=== PATIENT | female | born 1935 | race Caucasian/White ===

== ENCOUNTER 2018-09-10 14:22 | Emergency (ER) | payer OTHER ==
--- OUTSIDE RECORDS SUMMARY | 2018-09-10 14:38 | XMS REPORT ---
:1935 Author Organization eClinicalWorks Care Team Providers Name Role Phone Sherin Herediay Provider Role Unavailable Allergies, Adverse Reactions, Alerts Substance Reaction Event Type statin intolerance Drug Allergy Gemfibrozil nausea and vomiting Drug Allergy Codeine Phosphate Info Not Available Drug Allergy Problems Problem Type Condition Code Onset Dates Condition Status Problem Hypothyroidism E03.9 Active Problem Dizziness R42 Active Problem Incontinence of urine R32 Active Problem Intrinsic eczema L20.84 Active Assessment Benign hypertension I10 Active Problem CKD (chronic kidney disease) stage N18.3 Active 3, GFR 30-59 ml/min Assessment Acute rheumatoid arthritis M06.9 Active Problem Acute rheumatoid arthritis M06.9 Active Problem Gastroesophageal reflux disease K21.9 Active Problem Hearing loss H91.90 Active Problem Diminished pulses in lower extremity R09.89 Active Problem Diarrhea R19.7 Active Problem Chronic obstructive pulmonary J44.9 Active disease, unspecified Problem Vitamin D deficiency, unspecified E55.9 Active Problem Sinus pause I45.5 Active Problem Hypoglycemia E16.2 Active Problem Gout M10.9 Active Problem Benign hypertension I10 Active Problem Pharyngitis J02.9 Active Problem Mixed hyperlipidemia E78.2 Active Problem Depression F32.9 Active Medications Medication Code Code Instructions Start End Status Dosage System Date Date Flonase [facility] 06782970890 50 MCG/DOSE Active 2 sprays Nasally Once a day prn Singulair [facility] 21752274765 10 MG Active TAKE 1 TABLET BY MOUTH EVERY DAY FOR ALLERGIES Dyazide [facility] 59613547843 37.5-25 MG Active 1 EACH ONCE A DAY IN THE AM ORALLY Oxybutynin ND 20757015428 5 MG Orally Active 1 tablet Chloride ER Once a day Zoloft ND 42139996977 50 MG Orally Active 1 tablet Once a day Meloxicam ND 38075613933 15 MG Orally Mar 25May Active 1 tablet Once a day 2017 Fish Oil [facility] [address]-58 Orally Once a Active 1 capsule day Proventil HFA [facility] 24562180354 108 (90 Base) Active 2 puffs as MCG/ACT needed Inhalation every 4-6 hrs prn s.o.b./wheezin g Anoro Ellipta [facility] 24953011423 62.5-25 Active 1 puff MCG/INH Inhalation Once a day Triamcinolone [facility] 51825710715 0.1 % Sept Active 1 application Acetonide Externally 27, to affected Twice a day 2018 area Levothyroxine [facility] 82486923939 112 MCG Orally Active 1 tablet on Sodium Once a day an empty stomach in the morning Vitamin D [facility] 58249592424 2000 UNIT Active 1 tablet Orally Once a day Zoloft [facility] 94411889959 100 MG Orally Active 1 tablet Once a day Amlodipine [facility] 64952032662 5 MG Orally Dec , Active 1 tablet Besylate Once a day 2017 Results No Known Results Summary Purpose eClinicalWorks Submission
--- OUTSIDE RECORDS SUMMARY | 2018-09-10 14:38 | XMS REPORT ---
:1935 Author Organization eClinicalWorks Care Team Providers Name Role Phone Arminda Heredia Provider Role Unavailable Allergies, Adverse Reactions, Alerts Substance Reaction Event Type statin intolerance Drug Allergy Gemfibrozil nausea and vomiting Drug Allergy Codeine Phosphate Info Not Available Drug Allergy Problems Problem Type Condition Code Onset Dates Condition Status Problem Hypoglycemia E16.2 Active Problem Gastroesophageal reflux disease K21.9 Active Problem Hearing loss H91.90 Active Problem Incontinence of urine R32 Active Problem Hypothyroidism E03.9 Active Problem Dizziness R42 Active Problem Gout M10.9 Active Problem Diarrhea R19.7 Active Problem Depression F32.9 Active Problem Pharyngitis J02.9 Active Assessment Hypothyroidism E03.9 Active Assessment Depression F32.9 Active Assessment Decreased pulses in feet R09.89 Active Problem Chronic obstructive pulmonary J44.9 Active disease, unspecified Problem Vitamin D deficiency, unspecified E55.9 Active Assessment Vitamin D deficiency, unspecified E55.9 Active Problem Benign hypertension I10 Active Problem Sinus pause I45.5 Active Problem Mixed hyperlipidemia E78.2 Active Medications Medication Code Code Instructions Start End Status Dosage System Date Date Fish Oil [facility] [address]-32 Orally Once a Active 1 capsule day Zoloft [facility] 73672017003 100 MG Orally Active 1 tablet Once a day Anoro Ellipta [facility] 91689667260 62.5-25 MCG/INH Active 1 puff Inhalation Once a day Singulair [facility] 80612224804 10 MG Orally Active 1 tablet Once a day in the evening Levothyroxine [facility] 75650950843 112 MCG Orally Active 1 tablet Sodium Once a day on an empty stomach in the morning Zoloft [facility] 07396928867 50 MG Orally Active 1 tablet Once a day Proventil HFA [facility] 94717953573 108 (90 Base) Active 2 puffs MCG/ACT as needed Inhalation every 4-6 hrs prn s.o.b./wheezing Oxybutynin [facility] 24744329698 5 MG Orally Active 1 tablet Chloride ER Once a day Celebrex [facility] 19046831450 200 MG Orally Active 1 capsule Once a day with food Dyazide [facility] 80352825454 37.5-25 MG Active 1 EACH ONCE A DAY IN THE AM ORALLY Flonase [facility] 16511911752 50 MCG/DOSE Active 2 sprays Nasally Once a day prn Results No Known Results Summary Purpose eClinicalWorks Submission
--- OUTSIDE RECORDS SUMMARY | 2018-09-10 14:38 | XMS REPORT ---
:1935 Author Organization eClinicalWorks Care Team Providers Name Role Phone Arminda Heredia Provider Role Unavailable Allergies No Known Allergies Problems Problem Type Condition Code Onset Dates Condition Status Problem Pharyngitis J02.9 Active Problem Hypothyroidism E03.9 Active Problem Depression F32.9 Active Problem Diminished pulses in lower extremity R09.89 Active Problem Diarrhea R19.7 Active Problem CKD (chronic kidney disease) stage N18.3 Active 3, GFR 30-59 ml/min Problem Dizziness R42 Active Problem Incontinence of urine R32 Active Problem Gastroesophageal reflux disease K21.9 Active Problem Hearing loss H91.90 Active Problem Sinus pause I45.5 Active Assessment Diminished pulses in lower extremity R09.89 Active Problem Benign hypertension I10 Active Problem Mixed hyperlipidemia E78.2 Active Problem Chronic obstructive pulmonary J44.9 Active disease, unspecified Problem Hypoglycemia E16.2 Active Problem Vitamin D deficiency, unspecified E55.9 Active Problem Gout M10.9 Active Medications No Known Medications Results No Known Results Summary Purpose eClinicalWorks Submission
--- OUTSIDE RECORDS SUMMARY | 2018-09-10 14:38 | XMS REPORT ---
[...] Depression F32.9 Active Problem Pharyngitis J02.9 Active Problem Chronic obstructive pulmonary J44.9 Active disease, unspecified Problem Vitamin D deficiency, unspecified E55.9 Active Assessment Skin lesion of face L98.9 Active Problem Benign hypertension I10 Active Problem Sinus pause I45.5 Active Problem Mixed hyperlipidemia E78.2 Active Medications No Known Medications Results No Known Results Summary Purpose eClinicalWorks Submission
--- OUTSIDE RECORDS SUMMARY | 2018-09-10 14:38 | XMS REPORT ---
:1935 Author Organization eClinicalWorks Care Team Providers Name Role Phone Arminda Heredia Provider Role Unavailable Allergies No Known Allergies Problems Problem Type Condition Code Onset Dates Condition Status Problem Sinus pause I45.5 Active Problem Vitamin D deficiency, unspecified E55.9 Active Problem Chronic obstructive pulmonary J44.9 Active disease, unspecified Problem Diarrhea R19.7 Active Problem Gastroesophageal reflux disease K21.9 Active Problem Diminished pulses in lower extremity R09.89 Active Problem Mixed hyperlipidemia E78.2 Active Problem Benign hypertension I10 Active Problem Hearing loss H91.90 Active Problem Hypoglycemia E16.2 Active Problem Depression F32.9 Active Problem Hypothyroidism E03.9 Active Problem Gout M10.9 Active Problem Incontinence of urine R32 Active Problem Pharyngitis J02.9 Active Problem Dizziness R42 Active Medications No Known Medications Results No Known Results Summary Purpose eClinicalWorks Submission
--- OUTSIDE RECORDS SUMMARY | 2018-09-10 14:38 | XMS REPORT ---
[...] Active Problem Intrinsic eczema L20.84 Active Assessment CKD (chronic kidney disease) stage N18.3 Active 3, GFR 30-59 ml/min Problem CKD (chronic kidney disease) stage N18.3 Active 3, GFR 30-59 ml/min Assessment Vitamin D deficiency, unspecified E55.9 Active Assessment Benign hypertension I10 Active Problem Acute rheumatoid arthritis M06.9 Active [...] hypertension I10 Active Problem Pharyngitis J02.9 Active Assessment Intrinsic eczema L20.84 Active Problem Mixed hyperlipidemia E78.2 Active Problem Depression F32.9 Active Medications Medication Code Code Instructions Start End Status Dosage System Date Date Celebrex [facility] 53705053525 200 MG Orally Active 1 capsule Once a day with food Oxybutynin [facility] 75149193466 5 MG Orally Active 1 tablet Chloride ER Once a day Fish Oil [facility] [address]-76 Orally Once a Active 1 capsule day Singulair [facility] 89347725098 10 MG Active TAKE 1 TABLET BY MOUTH EVERY DAY FOR ALLERGIES Proventil HFA [facility] 31876685986 108 (90 Base) Active 2 puffs as MCG/ACT needed Inhalation every 4-6 hrs prn s.o.b./wheezin g Flonase [facility] 24533339755 50 MCG/DOSE Active 2 sprays Nasally Once a day prn Vitamin D [facility] 93970594497 2000 UNIT Active 1 tablet Orally Once a day Zoloft [facility] 92164764390 50 MG Orally Active 1 tablet Once a day Dyazide [facility] 51399072378 37.5-25 MG Active 1 EACH ONCE A DAY IN THE AM ORALLY Triamcinolone [facility] 98403801729 0.1 % Sept Active 1 application Acetonide Externally 27, to affected Twice a day 2018 area Levothyroxine [facility] 85976389588 112 MCG Orally Active 1 tablet on Sodium Once a day an empty stomach in the morning Anoro Ellipta [facility] 76104475402 62.5-25 Active 1 puff MCG/INH Inhalation Once a day Zoloft [facility] 05126437772 100 MG Orally Active 1 tablet Once a day Results No Known Results Summary Purpose eClinicalWorks Submission
--- OUTSIDE RECORDS SUMMARY | 2018-09-10 14:38 | XMS REPORT ---
[...] Active Problem Sinus pause I45.5 Active Assessment CKD (chronic kidney disease) stage N18.3 Active 3, GFR 30-59 ml/min Problem Benign hypertension I10 Active Problem Mixed hyperlipidemia E78.2 Active Problem Chronic obstructive pulmonary J44.9 Active disease, unspecified Problem Hypoglycemia E16.2 Active Problem Vitamin D deficiency, unspecified E55.9 Active Problem Gout M10.9 Active Medications No Known Medications Results No Known Results Summary Purpose eClinicalWorks Submission
--- OUTSIDE RECORDS SUMMARY | 2018-09-10 14:39 | XMS REPORT ---
:1935 Author Organization eClinicalWorks Care Team Providers Name Role Phone Arminda Heredia Provider Role Unavailable Allergies No Known Allergies Problems Problem Type Condition Code Onset Dates Condition Status Problem Incontinence of urine R32 Active Problem Hearing loss H91.90 Active Problem Dizziness R42 Active Problem Acute rheumatoid arthritis M06.9 Active Problem Intrinsic eczema L20.84 Active Assessment Chronic obstructive pulmonary J44.9 Active disease, unspecified COPD type Problem Chronic obstructive pulmonary J44.9 Active disease, unspecified COPD type Problem Diarrhea R19.7 Active Problem Gastroesophageal reflux disease K21.9 Active Problem CKD (chronic kidney disease) stage N18.3 Active 3, GFR 30-59 ml/min Problem Diminished pulses in lower extremity R09.89 Active Problem Vitamin D deficiency, unspecified E55.9 Active Problem Benign hypertension I10 Active Problem Sinus pause I45.5 Active Problem Chronic obstructive pulmonary J44.9 Active disease, unspecified Problem Gout M10.9 Active Problem Pharyngitis J02.9 Active Problem Mixed hyperlipidemia E78.2 Active Problem Depression F32.9 Active Problem Hypoglycemia E16.2 Active Problem Hypothyroidism E03.9 Active Medications Medication Code System Code Instructions Start End Date Status Dosage Date Anoro Ellipta [facility] 59051650084 62.5-25 MCG/INH Active 1 puff Inhalation Once a day Results No Known Results Summary Purpose eClinicalWorks Submission
--- OUTSIDE RECORDS SUMMARY | 2018-09-10 14:39 | XMS REPORT ---
:1935 Author Organization eClinicalWorks Care Team Providers Name Role Phone Arminda Heredia Provider Role Unavailable Allergies No Known Allergies Problems Problem Type Condition Code Onset Dates Condition Status Problem Incontinence of urine R32 Active Problem Hearing loss H91.90 Active Problem Dizziness R42 Active Problem Acute rheumatoid arthritis M06.9 Active Problem Intrinsic eczema L20.84 Active Problem Chronic obstructive pulmonary J44.9 Active [...] Problem Hypothyroidism E03.9 Active Medications Medication Code Code Instructions Start End Date Status Dosage System Date Amlodipine [facility] 48482519074 5 MG Orally Once Active 1 tablet Besylate a day Results No Known Results Summary Purpose eClinicalWorks Submission
--- OUTSIDE RECORDS SUMMARY | 2018-09-10 14:39 | XMS REPORT ---
[...] N18.3 Active 3, GFR 30-59 ml/min Assessment Costochondritis M94.0 Active Problem Acute rheumatoid arthritis M06.9 Active [...] Start End Status Dosage System Date Date PredniSONE [facility] 64098574929 10 MG Orally Mar 16Feb Active 1 tablet Once a day 2017 Dyazide [facility] 49401687727 37.5-25 MG Active 1 EACH ONCE A DAY IN THE AM ORALLY Vitamin D [facility] 36370484652 2000 UNIT Active 1 tablet Orally Once a day Levothyroxine ND 47396632663 112 MCG Orally Active 1 tablet on Sodium Once a day an empty stomach in the morning Proventil HFA [facility] 59043949993 108 (90 Base) Active 2 puffs as MCG/ACT needed Inhalation every 4-6 hrs prn s.o.b./wheezin g Zoloft [facility] 90482140491 100 MG Orally Active 1 tablet Once a day Fish Oil [facility] [address]-06 Orally Once a Active 1 capsule day Triamcinolone [facility] 00493641306 0.1 % Sept Active 1 application Acetonide Externally 27, to affected Twice a day 2017 area Flonase [facility] 40278098741 50 MCG/DOSE Active 2 sprays Nasally Once a day prn Singulair [facility] 34900928182 10 MG Active TAKE 1 TABLET BY MOUTH EVERY DAY FOR ALLERGIES Amlodipine ND 02485189086 5 MG Orally Dec , Active 1 tablet Besylate Once a day 2017 Anoro Ellipta [facility] 08013857245 62.5-25 Active 1 puff MCG/INH Inhalation Once a day Oxybutynin [facility] 87646855641 5 MG Orally Active 1 tablet Chloride ER Once a day Zoloft [facility] 91358766096 50 MG Orally Active 1 tablet Once a day Results No Known Results Summary Purpose eClinicalWorks Submission
--- OUTSIDE RECORDS SUMMARY | 2018-09-10 14:39 | XMS REPORT ---
:1935 Author Organization eClinicalWorks Care Team Providers Name Role Phone [place] estraday Provider Role Unavailable Allergies, Adverse Reactions, Alerts [...] L20.84 Active Assessment Benign hypertension I10 Active Assessment Acute rheumatoid arthritis M06.9 Active Problem Chronic obstructive pulmonary J44.9 Active [...] Start End Status Dosage System Date Date Levothyroxine [facility] 02129082948 112 MCG Orally Active 1 tablet on Sodium Once a day an empty stomach in the morning Vitamin D ND 06822471246 2000 UNIT Active 1 tablet Orally Once a day Flonase ND 00101497498 50 MCG/DOSE Active 2 sprays Nasally Once a day prn Singulair ND 09047520130 10 MG Active TAKE 1 TABLET BY MOUTH EVERY DAY FOR ALLERGIES Triamcinolone ND 54338305104 0.1 % Sept Active 1 application Acetonide Externally 27, to affected Twice a day 2018 area Zoloft ND 95559152278 100 MG Orally Active 1 tablet Once a day Zoloft ND 51056104458 50 MG Orally Active 1 tablet Once a day Anoro Ellipta [facility] 16213609834 62.5-25 Active 1 puff MCG/INH Inhalation Once a day Meloxicam [facility] 19058210408 15 MG Orally Mar 25May Active 1 tablet Once a day 2017 Amlodipine [facility] 03818791156 5 MG Orally Active 1 tablet Besylate Once a day Proventil HFA [facility] 16850847228 108 (90 Base) Active 2 puffs as MCG/ACT needed Inhalation every 4-6 hrs prn s.o.b./wheezin g Oxybutynin [facility] 73256061047 5 MG Orally Active 1 tablet Chloride ER Once a day Fish Oil [facility] [address]-70 Orally Once a Active 1 capsule day Dyazide [facility] 13504273162 37.5-25 MG Active 1 EACH ONCE A DAY IN THE AM ORALLY Results No Known Results Summary Purpose eClinicalWorks Submission
--- OUTSIDE RECORDS SUMMARY | 2018-09-10 14:39 | XMS REPORT ---
:1935 Author Organization eClinicalWorks Care Team Providers Name Role Phone Arminda Heredia Provider Role Unavailable Allergies, Adverse Reactions, Alerts Substance Reaction Event Type statin intolerance Drug Allergy Gemfibrozil nausea and vomiting Drug Allergy Codeine Phosphate Info Not Available Drug Allergy Problems Problem Type Condition Code Onset Dates Condition Status Problem Hearing loss H91.90 Active Problem Diarrhea R19.7 Active Problem Gastroesophageal reflux disease K21.9 Active Problem Acute pain of left knee M25.562 Active Problem Incontinence of urine R32 Active Problem Chronic obstructive pulmonary J44.9 Active disease, unspecified COPD type Problem Hypothyroidism E03.9 Active Problem Screening for colon cancer Z12.11 Active Problem CKD (chronic kidney disease) stage N18.3 Active 3, GFR 30-59 ml/min Problem Diminished pulses in lower R09.89 Active extremity Problem Acute rheumatoid arthritis M06.9 Active Problem Intrinsic eczema L20.84 Active Problem Chronic obstructive pulmonary J44.9 Active disease, unspecified Problem Vitamin D deficiency, unspecified E55.9 Active Problem Dizziness R42 Active Problem Sinus pause I45.5 Active Problem Hypoglycemia E16.2 Active Problem Gout M10.9 Active Assessment Screening for colon cancer Z12.11 Active Problem Benign hypertension I10 Active Problem Pharyngitis J02.9 Active Assessment Acute pain of left knee M25.562 Active Problem Mixed hyperlipidemia E78.2 Active Problem Depression F32.9 Active Medications Medication Code Code Instructions Start End Status Dosage System Date Date Zoloft [facility] 86901082684 50 MG Orally Active 1 tablet Once a day Zoloft ND 48707074330 100 MG Orally Active 1 tablet Once a day Levothyroxine ND 97794142720 112 MCG Orally Active 1 tablet on Sodium Once a day an empty stomach in the morning Flonase ND 09211434877 50 MCG/DOSE Active 2 sprays Nasally Once a day prn Amlodipine ND 41887762745 5 MG Orally Active 1 tablet Besylate Once a day Oxybutynin ND 24967903882 5 MG Orally Active 1 tablet Chloride ER Once a day Dyazide [facility] 12820383393 37.5-25 MG Active 1 EACH ONCE A DAY IN THE AM ORALLY Singulair [facility] 85371986024 10 MG Active TAKE 1 TABLET BY MOUTH EVERY DAY FOR ALLERGIES Anoro Ellipta [facility] 51682589648 62.5-25 Active 1 puff MCG/INH Inhalation Once a day Vitamin D [facility] 22856185467 2000 UNIT Active 1 tablet Orally Once a day Fish Oil [facility] [address]-29 Orally Once a Active 1 capsule day Triamcinolone [facility] 60732953741 0.1 % Sept Active 1 application Acetonide Externally 27, to affected Twice a day 2018 area Proventil HFA [facility] 54137639941 108 (90 Base) Active 2 puffs as MCG/ACT needed Inhalation every 4-6 hrs prn s.o.b./wheezin g Results No Known Results Summary Purpose eClinicalWorks Submission
[2018-09-10 14:59] LABS: Absolute Monocytes 0.5 K/uL (0.1-1.3); Basophils % 0.7 % (0-1.3); Eosinophils % 2.8 % (0-4.4); Hematocrit 45.1 % (36.0-45.0); Lymphocytes % 25.8 % (15.3-44.8); MPV 8.7 fL (7.6-11.3); Monocytes % 6.9 % (3.3-12.3)
[2018-09-10 15:01] LABS: Protime INR 1.01
[2018-09-10 15:18] LABS: ALT/SGPT 12 U/L (12-78); AST/SGOT 8 U/L (15-37); Albumin 3.6 g/dL (3.4-5.0); Alkaline Phosphatase 70 U/L (45-117); BUN Blood Urea Nitrogen 19 mg/dL (7-18); Bicarbonate 22 mmol/L (21-32); Bilirubin Direct 0.1 mg/dL (0-0.2); Bilirubin Total 0.7 mg/dL (0.2-1.0); Glucose Level 181 mg/dL (74-106); Magnesium 2.1 mg/dL (1.8-2.4); NT PRO-BNP 506 pg/mL (<450); Potassium 3.9 mmol/L (3.5-5.1); Protein, Total 6.7 g/dL (6.4-8.2); Sodium Level 143 mmol/L (136-145); Troponin (Emerg Dept Use Only) < 0.02 ng/mL (0.0-0.045)
[2018-09-10] MEDS ORDERED: NA CHLORIDE 0.9% 1,000 ML ONE (15:18)
--- NOTE | 2018-09-10 15:23 | RAD REPORT ---
EXAM DESCRIPTION: CT - Head Brain Wo Cont - 09/10/2018 3:09 pm CLINICAL HISTORY: DIZZINESS Headache, drowsiness and syncope COMPARISON: <Comparisons> TECHNIQUE: All CT scans are performed using dose optimization technique as appropriate and may inclu de automated exposure control or mA/KV adjustment according to patient size. FINDINGS: No intracranial hemorrhage, hydrocephalus or extra-axial fluid collection.Moderate periven tricular and deep white matter chronic microvascular ischemic changes are present.There is prominent soft tissue/enlarged pituitary seen in the sella turcica. The paranasal sinuses and mastoids are clear. The calvarium is intact. IMPRESSION: No acute intracranial abnormality. Soft tissue density mass is seen in the sella turcica. 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 MR imag ing of the brain with gadolinium would be recommended for followup assessment.
--- NOTE | 2018-09-10 16:00 | RAD REPORT ---
EXAM DESCRIPTION: RAD - Chest Single View - 09/10/2018 3:47 pm CLINICAL HISTORY: FEVER Chest pain. COMPARISON: Chest Pa And Lat (2 Views) dated 11/13/2015; CHEST PA AND LAT 2 VIEW dated 01/07/2013 FINDINGS: Portable technique limits examination quality. Emphysematous changes are present throughout the lungs. Mild linear subsegmental atelectasis is prese nt left lung base. The heart is normal in size. Moderate hiatal hernia. IMPRESSION: COPD.
--- NOTE | 2018-09-10 17:05 | RAD REPORT ---
EXAM DESCRIPTION: - CP - 09/10/2018 4:43 pm CLINICAL HISTORY: DIZZINESS Headache, drowsiness, syncope COMPARISON: No comparisons TECHNIQUE: Real-time sonographic evaluation of both carotid systems was performed. Doppler interroga tion was performed with waveform tracing bilaterally. FINDINGS: Normal high resistance waveforms are noted in both external carotid arteries. The common c arotid arteries and internal carotid arteries show normal low resistance waveforms. Both common carotid systems demonstrate mild hard plaquing. Left carotid bulb demonstrates moderate h myesha plaquing. Peak systolic and end diastolic velocity values and the ICA/CCA ratios are in the non-h emodynamically significant range. Antegrade flow seen in both vertebral arteries. IMPRESSION: Moderate hard plaquing is seen left carotid bulb. No evidence of a hemodynamically significant stenosis.
[2018-09-10 17:08] LABS: Urine Blood NEGATIVE (NEG); Urine Glucose NEGATIVE (NEG); Urine Protein 2+ (NEG); Urine Specific Gravity >1.030 (1.005-1.030)
--- NOTE | 2018-09-10 17:53 | ER ---
Nurse's Notes [facility] Name: Danna Phillips Age: 82 yrs Sex: Female : 1935 Arrival Date: 09/10/2018 Time: 14:23 Bed 15 Private MD: Diagnosis: Abnormal brain scan-soft tissue pituitary mass;Volume depletion;Chronic obstructive pulmonary disease, unspecified;Vomiting;Syncope and collapse-near Presentation: 09/10 14:24 Presenting complaint: EMS states: pt finished shopping at [employer], while at her vehicle sg became dizzy, seeing black spots and felt faint. pt now complains of nausea. Transition of care: patient was not received from another setting of care. Onset of symptoms was September 10, 2018. Risk Assessment: Do you want to hurt yourself or someone else? Patient reports no desire to harm self or others. Initial Sepsis Screen: Does the patient meet any 2 criteria? No. Patient's initial sepsis screen is negative. Does the patient have a suspected source of infection? No. Patient's initial sepsis screen is negative. Care prior to arrival: Glucose check: 181. 14:24 Method Of Arrival: EMS: [facility] sg 14:24 Acuity: ADRIANA 3 sg Historical: - Allergies: 14:27 Codeine; sg - Immunization history:: Adult Immunizations up to date. - Social history:: Smoking status: Patient/guardian denies using tobacco. - Ebola Screening: : Patient negative for fever greater than or equal to 101.5 degrees Fahrenheit, and additional compatible Ebola Virus Disease symptoms Patient denies exposure to infectious person Patient denies travel to an Ebola-affected area in the 21 days before illness onset No symptoms or risks identified at this time. - Family history:: not pertinent. Screenin:15 Abuse screen: Denies threats or abuse. Denies injuries from another. Nutritional sg screening: No deficits noted. Tuberculosis screening: No symptoms or risk factors identified. Never had TB. Fall Risk None identified. Assessment: 14:30 General: Appears in no apparent distress. comfortable, well groomed, well developed, sg well nourished, Behavior is calm, cooperative, appropriate for age. Pain: Denies pain. Neuro: Level of Consciousness is awake, alert, obeys commands, Oriented to person, place, time, situation, Office Clerk Assistant are equal bilaterally Moves all extremities. Full function Gait is steady, Speech is normal, Facial symmetry appears normal, Pupils are PERRLA, Reports fatigue. Cardiovascular: Patient's skin is warm and dry. Chest pain is denied. Respiratory: Airway is patent Respiratory effort is even, unlabored, Respiratory pattern is regular, symmetrical. GI: No signs and/or symptoms were reported involving the gastrointestinal system. : No signs and/or symptoms were reported regarding the genitourinary system. EENT: No signs and/or symptoms were reported regarding the EENT system. Derm: Skin is pink, warm \\T\\ dry. Musculoskeletal: No signs and/or symptoms reported regarding the musculoskeletal system. 16:15 Reassessment: Patient appears in no apparent distress at this time. Patient and/or sg family updated on plan of care and expected duration. Pain level reassessed. Patient is alert, oriented x 3, equal unlabored respirations, skin warm/dry/pink. awaiting lab results, awaiting new orders will continue to monitor Patient denies pain at this time. 16:44 Reassessment: Patient appears in no apparent distress at this time. orthostatics sg ordered, pt still receiving IV NS 500 mL bolus then will do Orthostatics as ordered, pt stated understandign. 17:10 Reassessment: IV fluids completed NS 500 mL bolus, pt states that "I would like to be sg left alone and rest, the orthostatics will just have to wait.". Vital Signs: 14:25 BP 117 / 73; Pulse 96; Resp 17; Temp 98.4; Pulse Ox 100% on R/A; Weight 64.41 kg (R); sg Pain 0/10; 15:30 BP 114 / 72; Pulse 87; Resp 17; Pulse Ox 98% on R/A; Pain 0/10; sg 16:30 BP 112 / 70; Pulse 88; Resp 18; Pulse Ox 97% on R/A; Pain 0/10; sg 17:30 BP 116 / 72; Pulse 82; Resp 17; Pulse Ox 99% on R/A; Pain 0/10; sg ED Course: 14:23 Patient arrived in ED. sg 14:25 Triage completed. sg 14:25 Taran Garrido MD is Attending Physician. marisol 14:25 Arm band placed on. sg 14:34 EKG done, by copy room technician. reviewed by Taran Garrido MD. sm3 14:40 Inserted saline lock: 22 gauge in left antecubital area, using aseptic technique. Blood sg collected. 14:50 Eulogio Dela Cruz, RN is Primary Nurse. sg 15:09 CT Head Brain wo Cont In Process Unspecified. EDMS 15:50 XRAY Chest (1 view) In Process Unspecified. EDMS 16:30 Patient has correct armband on for positive identification. Bed in low position. Call sg light in reach. Pulse ox on. NIBP on. 16:32 Patient moved back from radiology. sg 16:45 US Carotid Artery Bilateral In Process Unspecified. EDMS 16:56 Ayan Vincent MD is Referral Physician. [facility] 18:05 No provider procedures requiring assistance completed. IV discontinued, intact, sg bleeding controlled, No redness/swelling at site. Pressure dressing applied. Administered Medications: 15:35 Drug: NS 0.9% 500 ml Route: IV; Rate: bolus; Site: left antecubital; sg 16:00 Follow up: Response: No adverse reaction; IV Status: Completed infusion; IV Intake: sg 500ml 18:09 Not Given (Patient Refused): NS 0.9% 1000 ml IV at 125 ml/hr continuous sg Intake: 16:00 IV: 500ml; Total: 500ml. sg Outcome: 16:55 Discharge ordered by . [facility] 18:07 Discharged to home ambulatory, with family. sg 18:07 Condition: good 18:07 Discharge instructions given to patient, family, Instructed on discharge instructions, follow up and referral plans. safety practices, Demonstrated understanding of instructions, follow-up care. 18:08 Patient left the ED. sg Signatures: Dispatcher [employer] EDND Eulogio Dela Cruz, Taran Lozoya RN, MD MD cha Montes, Shakira 3
--- NOTE | 2018-09-10 17:54 | EDPHYS ---
Physician Documentation [facility] Name: Danna Phillips Age: 82 yrs Sex: Female : 1935 Arrival Date: 09/10/2018 Time: 14:23 Bed 15 Private MD: ED Physician Taran Garrido HPI: 09/10 14:53 This 82 yrs old Female presents to ER via EMS with complaints of Near Syncope.marisol 14:53 The patient has experienced near-syncope, felt dizzy, felt faint, felt generally weak. marisol Onset: The symptoms/episode began/occurred just prior to arrival. Duration: This was a single episode, that lasted 15 minute(s). Context: the episode(s) was witnessed, by no one. Associated injury: The patient did not suffer any apparent associated injury. Associated signs and symptoms: The patient has no apparent associated signs or symptoms. Current symptoms: Currently, the patient is not experiencing any symptoms, the patient feels back to baseline. The patient has not experienced similar symptoms in the past. Historical: - Allergies: 14:27 Codeine; sg - Immunization history:: Adult Immunizations up to date. - Social history:: Smoking status: Patient/guardian denies using tobacco. - Ebola Screening: : Patient negative for fever greater than or equal to 101.5 degrees Fahrenheit, and additional compatible Ebola Virus Disease symptoms Patient denies exposure to infectious person Patient denies travel to an Ebola-affected area in the 21 days before illness onset No symptoms or risks identified at this time. - Family history:: not pertinent. ROS: 14:53 Constitutional: Negative for fever, chills, and weight loss, Eyes: Negative for injury, marisol pain, redness, and discharge, ENT: Negative for injury, pain, and discharge, Neck: Negative for injury, pain, and swelling, Cardiovascular: Negative for chest pain, palpitations, and edema, Respiratory: Negative for shortness of breath, cough, wheezing, and pleuritic chest pain, Abdomen/GI: Negative for abdominal pain, nausea, vomiting, diarrhea, and constipation, Back: Negative for injury and pain, : Negative for injury, bleeding, discharge, and swelling, MS/Extremity: Negative for injury and deformity, Skin: Negative for injury, rash, and discoloration, Psych: Negative for depression, anxiety, suicide ideation, homicidal ideation, and hallucinations, Allergy/Immunology: Negative for hives, rash, and allergies, Endocrine: Negative for neck swelling, polydipsia, polyuria, polyphagia, and marked weight changes, Hematologic/Lymphatic: Negative for swollen nodes, abnormal bleeding, and unusual bruising. 14:53 Neuro: Positive for near syncope. Exam: 14:53 Constitutional: This is a well developed, well nourished patient who is awake, alert, marisol and in no acute distress. Head/Face: Normocephalic, atraumatic. Eyes: Pupils equal round and reactive to light, extra-ocular motions intact. Lids and lashes normal. Conjunctiva and sclera are non-icteric and not injected. Cornea within normal limits. Periorbital areas with no swelling, redness, or edema. ENT: Nares patent. No nasal discharge, no septal abnormalities noted. Tympanic membranes are normal and external auditory canals are clear. Oropharynx with no redness, swelling, or masses, exudates, or evidence of obstruction, uvula midline. Mucous membranes moist. Neck: Trachea midline, no thyromegaly or masses palpated, and no cervical lymphadenopathy. Supple, full range of motion without nuchal rigidity, or vertebral point tenderness. No Meningismus. Chest/axilla: Normal chest wall appearance and motion. Nontender with no deformity. No lesions are appreciated. Cardiovascular: Regular rate and rhythm with a normal S1 and S2. No gallops, murmurs, or rubs. Normal PMI, no JVD. No pulse deficits. Respiratory: Lungs have equal breath sounds bilaterally, clear to auscultation and percussion. No rales, rhonchi or wheezes noted. No increased work of breathing, no retractions or nasal flaring. Abdomen/GI: Soft, non-tender, with normal bowel sounds. No distension or tympany. No guarding or rebound. No evidence of tenderness throughout. Back: No spinal tenderness. No costovertebral tenderness. Full range of motion. Skin: Warm, dry with normal turgor. Normal color with no rashes, no lesions, and no evidence of cellulitis. MS/ Extremity: Pulses equal, no cyanosis. Neurovascular intact. Full, normal range of motion. Neuro: Awake and alert, GCS 15, oriented to person, place, time, and situation. Cranial nerves II-XII grossly intact. Motor strength 5/5 in all extremities. Sensory grossly intact. Cerebellar exam normal. Normal gait. Psych: Awake, alert, with orientation to person, place and time. Behavior, mood, and affect are within normal limits. Vital Signs: 14:25 BP 117 / 73; Pulse 96; Resp 17; Temp 98.4; Pulse Ox 100% on R/A; Weight 64.41 kg (R); sg Pain 0/10; 15:30 BP 114 / 72; Pulse 87; Resp 17; Pulse Ox 98% on R/A; Pain 0/10; sg 16:30 BP 112 / 70; Pulse 88; Resp 18; Pulse Ox 97% on R/A; Pain 0/10; sg 17:30 BP 116 / 72; Pulse 82; Resp 17; Pulse Ox 99% on R/A; Pain 0/10; sg MDM: 14:25 Patient medically screened. [facility] 14:57 Data reviewed: vital signs, nurses notes, lab test result(s), EKG, radiologic studies, [facility] CT scan, doppler, plain films. 09/10 14:35 Order name: Basic Metabolic Panel bp 09/10 14:35 Order name: CBC with Diff; Complete Time: 16:07 bp 09/10 14:35 Order name: LFT's; Complete Time: 16:07 bp 09/10 14:35 Order name: Magnesium; Complete Time: 16:07 bp 09/10 14:35 Order name: NT PRO-BNP; Complete Time: 16:07 bp 09/10 14:35 Order name: PT-INR; Complete Time: 16:07 bp 09/10 14:35 Order name: Troponin (emerg Dept Use Only); Complete Time: 16:07 bp 09/10 14:35 Order name: XRAY Chest (1 view); Complete Time: 16:07 bp 09/10 14:37 Order name: Basic Metabolic Panel; Complete Time: 16:07 EDMS 09/10 14:53 Order name: CT Head Brain wo Cont; Complete Time: 16:07 marisol 09/10 14:53 Order name: US Carotid Artery Bilateral [facility] 09/10 14:53 Order name: Urine Culture [facility] 09/10 16:10 Order name: TSH; Complete Time: 16:49 [facility] 09/10 16:49 Order name: Urine Dipstick--Ancillary (enter results) wv 09/10 14:35 Order name: EKG; Complete Time: 14:38 bp 09/10 14:35 Order name: Cardiac monitoring; Complete Time: 14:51 bp 09/10 14:35 Order name: EKG - Nurse/Tech; Complete Time: 14:51 bp 09/10 14:35 Order name: IV Saline Lock; Complete Time: 16:44 bp 09/10 14:35 Order name: Labs collected and sent; Complete Time: 14:51 bp 09/10 14:35 Order name: O2 Per Protocol; Complete Time: 14:51 bp 09/10 14:35 Order name: O2 Sat Monitoring; Complete Time: 14:51 bp 09/10 14:53 Order name: Urine Dipstick-Ancillary (obtain specimen); Complete Time: 17:32 marisol Administered Medications: 15:35 Drug: NS 0.9% 500 ml Route: IV; Rate: bolus; Site: left antecubital; sg 16:00 Follow up: Response: No adverse reaction; IV Status: Completed infusion; IV Intake: sg 500ml 18:09 Not Given (Patient Refused): NS 0.9% 1000 ml IV at 125 ml/hr continuous sg Disposition: 09/10/18 16:55 Discharged to Home. Impression: Abnormal brain scan - soft tissue pituitary mass, Volume depletion, Chronic obstructive pulmonary disease, unspecified, Vomiting, Syncope and collapse - near. - Condition is Stable. - Discharge Instructions: Nausea and Vomiting, Adult, Near-Syncope, Nausea and Vomiting, Adult, [id number], Near-Syncope, [id number]. - Medication Reconciliation Form, Thank You Letter, Antibiotic Education, Prescription Opioid Use form. - Follow up: Private Physician; When: 2 - 3 days; Reason: Recheck today's complaints, Continuance of care, Re-evaluation by your physician. Follow up: Ayan Vincent MD; When: 2 - 3 days; Reason: Recheck today's complaints, Continuance of care, Re-evaluation by your physician. - Problem is new. - Symptoms have improved. Signatures: Dispatcher [employer] EDEulogio Bernstein, RN RN Taran Brantley MD MD cha Peltier, Brian, RN RN bp Corrections: (The following items were deleted from the chart) 16:56 16:55 09/10/2018 16:55 Discharged to Home. Impression: Abnormal brain scan - soft marisol tissue pituitary mass; Volume depletion; Chronic obstructive pulmonary disease, unspecified; Vomiting; Syncope and collapse - near. Condition is Stable. Forms are Medication Reconciliation Form, Thank You Letter, Antibiotic Education, Prescription Opioid Use. Follow up: Private Physician; When: 2 - 3 days; Reason: Recheck today's complaints, Continuance of care, Re-evaluation by your physician. Problem is new. Symptoms have improved. [facility] 18:08 16:16 Orthostatics ordered. [facility] sg 18:08 16:56 09/10/2018 16:55 Discharged to Home. Impression: Abnormal brain scan - soft sg tissue pituitary mass; Volume depletion; Chronic obstructive pulmonary disease, unspecified; Vomiting; Syncope and collapse - near. Condition is Stable. Discharge Instructions: Nausea and Vomiting, Adult, Near-Syncope, Nausea and Vomiting, Adult, [id number], Near-Syncope, [id number]. Forms are Medication Reconciliation Form, Thank You Letter, Antibiotic Education, Prescription Opioid Use. Follow up: Private Physician; When: 2 - 3 days; Reason: Recheck today's complaints, Continuance of care, Re-evaluation by your physician. Follow up: Ayan Vincent; When: 2 - 3 days; Reason: Recheck today's complaints, Continuance of care, Re-evaluation by your physician. Problem is new. Symptoms have improved. marisol
--- NOTE | 2018-09-11 08:06 | EKG ---
Test Date: 2018-09-10 Test Time: 14:28:15 Web Retailer: SANDRA MEASUREMENT RESULTS: Intervals: Rate: 92 HI: 172 QRSD: 70 QT: 360 QTc: 445 [place]: P: 12 HI: 172 QRS: -62 T: 34 INTERPRETIVE STATEMENTS: Normal sinus rhythm Left anterior fascicular block Possible Lateral infarct, age undetermined Abnormal ECG Compared to ECG 04/22/2014 08:52:48 Myocardial infarct finding now present Sinus bradycardia no longer present Electronically Signed On 09-11-18 08:04:48 CDT by [facility]
== END 2018-09-10 18:08 | disposition home or self-care (01) ==
LOC: ER 14:22
DX: R55 Syncope and collapse (principal); E23.6 Other disorders of pituitary gland; E86.9 Volume depletion, unspecified; J44.9 Chronic obstructive pulmonary disease, unspecified; R11.10 Vomiting, unspecified; Z88.5 Allergy status to narcotic agent
CPT/HCPCS: 93005; 87088; 85025; 87086; 80048; 36415; 83735; 85610; 80076; 84443; 81003; 84484; 83880; 70450; 71045; 93880; 99284; J7030

== ENCOUNTER 2019-08-24 10:42 | Emergency (ER) | payer OTHER ==
--- OUTSIDE RECORDS SUMMARY | 2019-08-24 11:06 | XMS REPORT ---
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 Problem CKD (chronic kidney disease) stage N18.3 Active 3, GFR 30-59 ml/min Problem Pituitary tumor D49.7 Active Problem Skin excoriation T14.8XXA Active Problem Vitamin D deficiency, unspecified E55.9 Active Problem Chronic obstructive pulmonary J44.9 Active disease, unspecified Problem Itching L29.9 Active Problem Gastroesophageal reflux disease K21.9 Active Problem Chronic obstructive pulmonary J44.9 Active disease, unspecified COPD type Problem Acute rheumatoid arthritis M06.9 A ctive Problem Acute pain of left knee M25.562 Acti ve Problem Screening for colon cancer Z12.11 A ctive Problem Hypoglycemia E16.2 Active Problem Gout M10.9 Active Problem Benign hypertension I10 Active Problem Mixed hyperlipidemia E78.2 Active Problem Hypothyroidism E03.9 Active Problem Incontinence of urine R32 Active Problem Pharyngitis J02.9 Active Problem Depression F32.9 Active Medications No Known Medications Results No Known Results Summary Purpose [employer] Submission
--- OUTSIDE RECORDS SUMMARY | 2019-08-24 11:06 | XMS REPORT ---
:1935 Author Organization [facility] t Address [address] [place] [address] [address]. [address] [place] [address] Care Team Providers Name Role Phone Unavailable Unavailable Unavailable Problems Condition Condition Condition Status Onset Resolution Last Treating Co mments Source Name Details Category Date Date Treatment Clinician Date Hypoglycem Hypoglycem Problem Active [facility] Gastroesop Gastroesop Problem Active [facility] hageal hageal [facility] reflux reflux [facility] disease disease l [facility] Hearing Hearing Problem Active [facility] loss loss [facility] Incontinen Incontinen Problem Active [facility] ce of ce of [facility] urine urine [facility] Acquired Acquired Problem Active [facility] hypothyroi hypothyroi Meghan kes - dism dism [facility] l [facility] Dizziness Dizziness Problem [facility] Gout Gout Problem Active [facility] Diarrhea Diarrhea Problem [facility] Depression Depression Problem Active C [facility] , , [facility] - unspecifie unspecifie Me moria d d l depression depression Ou tpati type type ent Clinics Pharyngiti Pharyngiti Problem Active C [facility] s s [facility] Chronic Chronic Problem Active [facility] obstructiv obstructiv Meghan kes - e e Memoria pulmonary pulmonary l disease, disease, Outpat i unspecifie unspecifie en t d d Clinics Vitamin D Vitamin D Problem Active [facility] deficiency deficiency Meghan kes - , , Memoria unspecifie unspecifie l d d [facility] Benign Benign Problem Active [facility] hypertensi hypertensi Meghan kes - on on Memoria l [facility] Sinus Sinus Problem Active [facility] pause pause [facility] Mixed Mixed Problem Active [facility] hyperlipid hyperlipid Meghan kes - emia emia [facility]oria l [facility]ics Diminished Diminished Problem Active C [facility] pulses in pulses in Luke s - lower lower Memoria extremity extremity l [facility] CKD CKD Problem Active [facility] (chronic ([facility]ronic [facility] disease) disease) l stage 3, stage 3, Outpat i GFR 30-59 GFR 30-59 ent ml/min ml/min Clinics Intrinsic Intrinsic Problem Active [facility] eczema eczema [facility] Acute Acute Problem Active [facility] rheumatoid rheumatoid Meghan kes - arthritis arthritis Deon amira l [facility] Acute pain Acute pain Problem Active C [facility] of left of left [facility] - knee knee Memoria l [facility] Screening Screening Problem Active [facility] for colon for colon [place] - [facility] cancer [facility] Skin Skin Problem Active [facility] excoriatio excoriatio Meghan kes - n n [facility] Itching Itching Problem Active [facility] Pituitary Pituitary Problem Active [facility] tumor tumor [facility] Sinus Sinus Problem Active [facility] pressure pressure [facility] Wears Wears Problem Active [facility] hearing hearing [facility] aid in aid in [facility] left ear left ear l [facility] Allergies, Adverse Reactions, Alerts Allergy Allergy Status Severity Reaction(s) Onset Inactive Treating Comm ents Source Name Type Date Date Clinician statin Adverse Active intolerance [facility] Reaction [facility] Codeine Adverse Active Info Not [facility] Phosphat Reaction Available Adolfo es - e Memoria [facility] ent [facility] Gemfibro Adverse Active nausea and [facility] zil Reaction vomiting [facility] Medications Ordered Filled Start Stop Current Ordering Indication Dosage Frequency Signature Comments Components Source Medication Medication Date Date Medication? Clinician (SIG) Name Name Jaime Sandoval Yes Evelyn [address] [facility] Ellipta Ellipta [place] [facility] Procedures This patient has no known procedures. Encounters Start End Encounter Admission Attending Care Care Encounter Source Date/Time Date/Time Type Type Clinicians Facility Department ID 2019-08-03 2019-08-03 [facility] [id number] [facility] 10:38:00 10:38:00 t [facility] Medicine Outpati ent Clinics 2019-06-07 2019-06-07 [facility] [id number] 22:27:00 22:27:00 t [facility] Medicine Outpati ent Clinics 2019-06-04 2019-06-04 [facility] [id number] [facility] 11:15:00 11:15:00 t [facility] Medicine Outpati ent Clinics 2019-06-03 2019-06-03 [facility] [id number] [address] 17:19:00 17:19:00 t [facility] Medicine Outpati ent Clinics 2019-03-17 2019-03-17 [facility] [id number] [address] 13:40:00 13:40:00 t [facility] Medicine Outpati ent Clinics 2019-02-11 2019-02-11 [facility] [id number] [address] 16:52:00 16:52:00 t [facility] Medicine Outpati ent Clinics 2019-02-08 2019-02-08 [facility] [id number] [address] 09[facility]25:00 09:25:00 t [facility] Medicine Outpati ent Clinics 2018-12-10 2018-12-10 [facility] [id number] [address] 10:10:00 10:10:00 t [facility] Medicine Outpati ent Clinics 2018-11-26 2018-11-26 [facility] [id number] [address] 11:17:00 11:17:00 t [facility] Medicine Outpati ent Clinics 2018-10-29 2018-10-29 [facility] [id number] 13:05:00 13:05:00 t [facility] Medicine Outpati ent Clinics 2018-09-23 2018-09-23 [facility] [id number] 11:34:00 11:34:[address] [facility] [address] [place] - [facility] Medicine Medicine Outpati ent Clinics 2018 2018 [facility] [id number] 10[facility]46:00 10:46:00 t [facility] Medicine Outpati ent Clinics 2018 2018 [facility] [id number] 10:45:00 10:45:00 t [facility] Medicine l Medicine Outpati ent Clinics 2018-09-10 2018-09-10 [facility] [id number] 14:28:00 14:28:00 [place] [address] [place] - [address] [facility] Medicine l Medicine Outpati ent Clinics 2018-06-11 2018-06-11 [facility] [id number] 13:30:00 13:30:00 t [facility] Medicine Outpati ent Clinics 2018-06-04 2018-06-04 [facility] [id number] 16:56:00 16:56:00 t [facility] Medicine Medicine Outpati ent Clinics 2018-05-05 2018-05-05 [facility] [id number] 15:30:00 15:30:00 t [facility] Medicine Medicine Outpati ent Clinics 2018-04-08 2018-04-08 [facility] [id number] 11:12:00 11:12:00 t [facility] [address] [facility] Medicine Medicine Outpati ent Clinics 2018-03-25 2018-03-25 [facility] [id number] 13[facility]30:00 13:30:00 t [facility] [address] [facility] Medicine Medicine Outpati ent Clinics 2018-03-16 2018-03-16 [facility] [id number] 15:30:00 15:30:00 t [facility] [address] [facility] Medicine l Medicine Outpati ent Clinics 2017-12-25 2017-12-25 [facility] [id number] 15:15:00 15:15:00 t [facility] Medicine Outpati ent Clinics 2017-10-20 2017-10-20 [facility] [id number] 09:15:00 09:15:00 [facility] Medicine Outpati ent Clinics 2017-10-16 2017-10-16 [facility] [id number] 08:51:00 08:51:00 [facility] Medicine Outpati ent Clinics 2017-09-08 2017-09-08 [facility] [id number] 15:10:00 15:10:00 [facility] Medicine Outpati ent Clinics 2017-09-04 2017-09-04 [facility] [id number] 10:28:00 10:28:00 [facility] Medicine Outpati ent Clinics 2017-08-29 2017-08-29 [facility] [id number] 11:14:00 11:14:00 [facility] Medicine Outpati ent Clinics 2017-08-21 2017-08-21 [facility] [id number] 10:00:00 10:00:00 [facility] Medicine Outpati ent Clinics Results This patient has no known results.
--- OUTSIDE RECORDS SUMMARY | 2019-08-24 11:07 | XMS REPORT ---
:1935 Author Organization [employer] Care Team Providers Name Role Phone Evelyn Heredia Provider Role Unavailable Allergies No Known Allergies Problems Problem Type Condition Code Onset Dates Condition Statu s Problem Sinus pause I45.5 Active Problem Hearing loss H91.90 Active Problem Hypothyroidism E03.9 Active Problem Incontinence of urine R32 Active Problem Dizziness R42 Active Problem Gout M10.9 Active Problem Acute rheumatoid arthritis M06.9 A ctive Problem Chronic obstructive pulmonary J44.9 Active disease, unspecified COPD type Problem Pharyngitis J02.9 Active Problem Acute pain of left knee M25.562 Acti ve Problem Itching L29.9 Active Problem Screening for colon cancer Z12.11 A ctive Problem Acquired hypothyroidism E03.9 Acti ve Problem Sinus pressure J34.89 Active Problem Vitamin D deficiency, unspecified E55.9 Active Problem Chronic obstructive pulmonary J44.9 Active disease, unspecified Problem Essential hypertension I10 Activ e Problem Depression F32.9 Active Problem Skin excoriation T14.8XXA Active Problem Pituitary tumor D49.7 Active Problem Depression, unspecified depression F32.9 Active type Problem Wears hearing aid in left ear Z97.4 Active Problem Hypoglycemia E16.2 Active Problem Gastroesophageal reflux disease K21.9 Active Problem Benign hypertension I10 Active Problem Mixed hyperlipidemia E78.2 Active Problem CKD (chronic kidney disease) stage N18.3 Active 3, GFR 30-59 ml/min Problem Intrinsic eczema L20.84 Active Problem Diarrhea R19.7 Active Problem Diminished pulses in lower R09.89 A ctive extremity Medications No Known Medications Results No Known Results Summary Purpose [employer] Submission
--- OUTSIDE RECORDS SUMMARY | 2019-08-24 11:07 | XMS REPORT ---
[...] in lower R09.89 A ctive extremity Medications Medication Code System Code Instructions Start End Date Status Dos age Date Anoro Ellipta [facility] 79150162463 62.5-25 MCG/INH Active 1 puff Inhalation Once a day Results No Known Results Summary Purpose [employer] Submission
--- OUTSIDE RECORDS SUMMARY | 2019-08-24 11:07 | XMS REPORT ---
:1935 Author Organization [employer] Care Team Providers Name Role Phone Karly John Provider Role Unavailable Allergies, Adverse Reactions, Alerts Substance Reaction Event Type statin intolerance Drug Allergy Gemfibrozil nausea and vomiting Drug Allergy Codeine Phosphate Info Not Available Drug Allergy Problems Problem Type Condition Code Onset Dates Condition Statu s Assessment Pituitary tumor D49.7 Active Assessment Acquired hypothyroidism E03.9 Acti ve Assessment Essential hypertension I10 Activ e Problem Sinus pause I45.5 Active Problem Hearing [...] hearing aid in left ear Z97.4 Active Assessment Chronic obstructive pulmonary J44.9 Active disease, unspecified Problem Hypoglycemia E16.2 Active Assessment Sinus pressure J34.89 Active Problem Gastroesophageal reflux disease K21.9 Active Assessment Wears hearing aid in left ear Z97.4 Active Problem Benign hypertension I10 Active Assessment Hearing loss H91.90 Active Problem Mixed hyperlipidemia E78.2 Active Problem CKD (chronic kidney disease) stage N18.3 Active 3, GFR 30-59 ml/min Assessment Depression, unspecified depression F32.9 Active type Problem Intrinsic eczema L20.84 Active Problem Diarrhea R19.7 Active Problem Diminished pulses in lower R09.89 A ctive extremity Medications Medication Code Code Instructions Start End Status Dosage System Date Date Flonase [facility] 42770224739 50 MCG/DOSE Active 2 sprays Nasally Once a day prn Singulair [facility] 01109161009 10 MG Active TAKE 1 TAB LET BY MOUTH EVERY DAY FOR ALLERGIES Vitamin D [facility] 28671217241 2000 UNIT Active 1 tablet Orally Once a day Proventil HFA [facility] 05437455943 108 (90 Base) Active 2 puffs as MCG/ACT needed Inhalation every 4-6 hrs prn s.o.b./wheezin g Zoloft [facility] 28627756683 50 MG Orally Active 1 table t Once a day Fish Oil [facility] [address]-06 Orally Once a Active 1 capsule day Triamcinolone [facility] 00224405044 0.1 % Sept Active 1 appl ication Acetonide Externally 27, to affected Twice a day 2018 area Zoloft [facility] 66559455097 100 MG Orally Active 1 tabl et Once a day Amlodipine [facility] 07365453154 5 MG Orally Active 1 tab let Besylate Once a day Anoro Ellipta [facility] 99890695062 62.5-25 Active 1 puff MCG/INH Inhalation Once a day Dyazide [facility] 48519663281 37.5-25 MG Active 1 EACH ON CE A DAY IN THE AM ORALLY Iron [facility] 44066243140 325 (65 Fe) MG Active 1 tab let Orally Once a day Levothyroxine [facility] 81987126159 75 MCG Orally Active 1 tablet on Sodium Once a day an empty stomach in the morning Oxybutynin [facility] 33671345663 5 MG Orally Active 1 tab let Chloride ER Once a day Results No Known Results Summary Purpose eClinicalWorks Submission
[2019-08-24 11:40] LABS: Potassium 3.9 mmol/L (3.5-5.1); Uric Acid 5.5 mg/dL (2.6-6.0)
[2019-08-24 11:46] LABS: Basophils % 0.8 % (0-1.3); Hematocrit 43.7 % (36.0-45.0); Lymphocytes % 26.6 % (15.3-44.8); MPV 8.9 fL (7.6-11.3); RBC Red Blood Cell Count 5.63 M/uL (3.86-4.86)
--- NOTE | 2019-08-24 13:02 | RAD REPORT ---
EXAM DESCRIPTION: RAD - Foot Right 3 View - 08/24/2019 11:25 am CLINICAL HISTORY: foot pain, 1st MTP, history of trip and fall 2 weeks earlier COMPARISON: No comparisonsNone. FINDINGS: Subacute fractures seen in the first proximal phalanx. There is a transverse lucent line a t the shaft head junction. There is early remodeling changes present. No abnormal angulation deformit y. Degenerative change present at the first IP joint. The second- fifth IP joint spaces are narrowed. Na rrowing is present at the first MTP joint. No pathologic bone process. No air or foreign body in the soft tissues. IMPRESSION: Subacute fracture first proximal phalanx right foot without distraction or angulation de formity.
[2019-08-24 13:53] VITALS: TEMP 97.8
[2019-08-24 13:56] VITALS: BP 220/80; O2SAT 96
--- NOTE | 2019-08-30 13:13 | ER ---
Nurse's Notes [facility] Name: Danna Phillips Age: 83 yrs Sex: Female : 1935 Arrival Date: 08/24/2019 Time: 10:44 Bed 20 Private MD: Diagnosis: Nondisplaced fracture of proximal phalanx of right great toe Presentation: 08/23 10:46 Chief complaint: Patient states: swelling to right foot. Pt states "I tripped 2 weeks aa5 ago and I also have gout so I am not sure what it is". 10:46 Coronavirus screen: Proceed with normal triage. Patient reports a cough. Patient aa5 reports shortness of breath or difficulty breathing. Patient denies measured and/or subjective temperature greater than 100.4F prior to today's visit. Patient denies travel on a cruise ship or to a country the [facility] currently lists as an affected area. Patient denies contact with known and/or suspected case of COVID-19. Pt reports baseline SOB and cough from COPD. Ebola Screen: Patient negative for fever greater than or equal to 101.5 degrees Fahrenheit, and additional compatible Ebola Virus Disease symptoms. Initial Sepsis Screen: Does the patient meet any 2 criteria? No. Patient's initial sepsis screen is negative. Does the patient have a suspected source of infection? No. Patient's initial sepsis screen is negative. Risk Assessment: Do you want to hurt yourself or someone else? Patient reports no desire to harm self or others. Onset of symptoms was July 2019. 10:46 Method Of Arrival: Wheelchair aa5 10:46 Acuity: ADRIANA 2 aa5 Triage Assessment: 10:50 General: Appears in no apparent distress. uncomfortable, Behavior is cooperative, bp appropriate for age, anxious. Pain: Complains of pain in right foot. EENT: No deficits noted. Neuro: No deficits noted. Cardiovascular: No deficits noted. Respiratory: No deficits noted. GI: No signs and/or symptoms were reported involving the gastrointestinal system. : No signs and/or symptoms were reported regarding the genitourinary system. Derm: No deficits noted. Musculoskeletal: Swelling present in right foot. Historical: - Allergies: 10:46 Codeine; aa5 - PMHx: 10:46 Gout; COPD; Hypertension; Thyroid problem; aa5 10:46 Neuropathy; 60% kidney function; aa5 - PSHx: 10:46 Cholecystectomy; Appendectomy; D \\T\\ C; cataracts; aa5 - Immunization history:: Adult Immunizations up to date. - Social history:: Smoking status: Patient denies any tobacco usage or history of. - Family history:: not pertinent. - Hospitalizations: : No recent hospitalization is reported. Screenin:50 Abuse screen: Denies threats or abuse. Denies injuries from another. bp 10:50 Nutritional screening: No deficits noted. Tuberculosis screening: No symptoms or risk bp factors identified. Fall Risk None identified. Assessment: 10:50 General: SEE TRIAGE NOTE. bp Vital Signs: 10:46 BP 233 / 101; Pulse 64; Resp 20 S; Temp 97.8(O); Pulse Ox 100% on R/A; Weight 74.39 kg aa5 (R); Height 5 ft. 10 in. (177.80 cm) (R); Pain 10/10; 12:30 BP 220 / 90; Pulse 59; Resp 16; Pulse Ox 98% ; bp 13:28 BP 220 / 80; Pulse 49; Resp 16; Pulse Ox 96% ; bp 10:46 Body Mass Index 23.53 (74.39 kg, 177.80 cm) aa5 ED Course: 10:44 Patient arrived in ED. ag5 10:46 Arm band placed on Patient placed in an exam room, on a stretcher. aa5 10:50 Patient has correct armband on for positive identification. Bed in low position. Call bp light in reach. Side rails up X2. 10:54 Carloz Chatterjee MD is Attending Physician. rn 10:58 Mikel Noonan, EDILBERTO is Primary Nurse. bp 11:00 Triage completed. aa5 11:15 Inserted saline lock: 22 gauge in right forearm, using aseptic technique. Blood bp collected. 11:25 XRAY Foot RIGHT 3 View In Process Unspecified. EDMS 13:30 Ortho shoe applied to right foot. bp 13:43 No provider procedures requiring assistance completed. IV discontinued, intact, bp bleeding controlled, No redness/swelling at site. Pressure dressing applied. Administered Medications: No medications were administered Outcome: 12:26 Discharge ordered by MD. rn 13:43 Discharged to home ambulatory. bp 13:43 Condition: stable 13:43 Discharge instructions given to patient, Instructed on discharge instructions, follow up and referral plans. Demonstrated understanding of instructions, follow-up care, splint care. 13:44 Patient left the ED. bp Signatures: Dispatcher [employer] EDMS Carloz Chatterjee MD MD rn Calderon, Audri RN RN aa5 Mikel Noonan RN RN bp Aleida Alexandru ag5 Corrections: (The following items were deleted from the chart) 11:01 11:01 Allergies: Codeine; bp bp 11:02 10:58 Chief complaint: Patient states: R FOOT PAIN/EDEMA/ERYTHEMA x2 DAYS bp bp 11:02 10:58 Coronavirus screen: Proceed with normal triage. bp bp 11:02 10:58 Ebola Screen: No symptoms or risks identified at this time. bp bp 11:02 10:58 Initial Sepsis Screen: Does the patient meet any 2 criteria? No. Patient's bp initial sepsis screen is negative. Does the patient have a suspected source of infection? No. Patient's initial sepsis screen is negative. bp 11:02 10:58 Risk Assessment: Do you want to hurt yourself or someone else? Patient reports no bp desire to harm self or others. bp 11:02 10:58 Onset of symptoms is unknown. bp bp 11:02 10:58 Method Of Arrival: Ambulatory bp bp 11:02 10:58 BP 233 / 101; Pulse 63bpm; Resp 15bpm; Pulse Ox 100%; Temp 97.8F; bp bp 11:02 10:58 Acuity: ADRIANA 3 bp bp
--- NOTE | 2019-08-30 13:13 | EDPHYS ---
Physician Documentation [facility] Name: Danna Phillips Age: 83 yrs Sex: Female : 1935 Arrival Date: 08/24/2019 Time: 10:44 Bed 20 Private MD: ED Physician Carloz Chatterjee HPI: 08/23 12:21 This 83 yrs old Female presents to ER via Ambulatory with complaints of Feet rn Swelling, Foot Pain. 12:21 The patient presents with pain, swelling. The complaints affect the right foot. Onset: rn The symptoms/episode began/occurred this morning. Modifying factors: The symptoms are alleviated by nothing, the symptoms are aggravated by weight bearing, movement. Severity of symptoms: At their worst the symptoms were mild, in the emergency department the symptoms are unchanged. The patient has not experienced similar symptoms in the past. Reports fell 2 weeks ago, not sure if injured anything, but woke up this morning with pain and swelling around right great toe, does not recall new injury. No hx of gout. No fever. . Historical: - Allergies: 10:46 Codeine; aa5 - PMHx: 10:46 Gout; COPD; Hypertension; Thyroid problem; aa5 10:46 Neuropathy; 60% kidney function; aa5 - PSHx: 10:46 Cholecystectomy; Appendectomy; D \T\ C; cataracts; aa5 - Immunization history:: Adult Immunizations up to date. - Social history:: Smoking status: Patient denies any tobacco usage or history of. - Family history:: not pertinent. - Hospitalizations: : No recent hospitalization is reported. ROS: 12:21 MS/extremity: Positive for pain, swelling, tenderness. rn 12:21 Constitutional: Negative for fever, chills, and weight loss, MS/Extremity: Negative for deformity Neuro: Negative for weakness, numbness, tingling Exam: 12:21 Constitutional: This is a well developed, well nourished patient who is awake, alert, rn and in no acute distress. MS/ Extremity: Pulses equal, no cyanosis. + mild tenderness right 1st MTP joint and toe with mild swelling and redness. No open wounds. + swelling of distal foot. No streaking or warmth. Vital Signs: 10:46 BP 233 / 101; Pulse 64; Resp 20 S; Temp 97.8(O); Pulse Ox 100% on R/A; Weight 74.39 kg aa5 (R); Height 5 ft. 10 in. (177.80 cm) (R); Pain 10/10; 12:30 BP 220 / 90; Pulse 59; Resp 16; Pulse Ox 98% ; bp 13:28 BP 220 / 80; Pulse 49; Resp 16; Pulse Ox 96% ; bp 10:46 Body Mass Index 23.53 (74.39 kg, 177.80 cm) aa5 MDM: 10:54 Patient medically screened. rn 12:21 Differential diagnosis: fracture, sprain, arthritis, gout. Data reviewed: vital signs, rn nurses notes, radiologic studies, plain films, and as a result, I will discharge patient. Test interpretation: by ED physician or midlevel provider: plain radiologic studies, Xray right foot with closed, proximal transverse 1st phalanx fracture. . Counseling: I had a detailed discussion with the patient and/or guardian regarding: the historical points, exam findings, and any diagnostic results supporting the discharge/admit diagnosis, lab results, radiology results, the need for outpatient follow up, to return to the emergency department if symptoms worsen or persist or if there are any questions or concerns that arise at home. Special discussion: I discussed with the patient/guardian in detail that at this point there is no indication for admission to the hospital. It is understood, however, that if the symptoms persist or worsen the patient needs to return immediately for re-evaluation. ED course: Neg procal, normal WBC, normal uric acid. Unsure how she fractured toe but could explain isolated pain to great toe and recent injury. Also could be subacute fracture with gout. States can only take acetaminophen, will place in fracture shoe and recommended repeat xrays. . 08/23 11:03 Order name: CBC with Diff; Complete Time: 11:59 08/23 11:03 Order name: Basic Metabolic Panel; Complete Time: 11: rn 08/23 11:03 Order name: XRAY Foot RIGHT 3 View; Complete Time: 13:05 rn 08/23 11:03 Order name: IV Start; Complete Time: 11:30 08/23 11:03 Order name: Procalcitonin; Complete Time: 12:14 rn 08/23 11:03 Order name: Uric Acid; Complete Time: 11:08/23 12:21 Order name: Splint: ortho fracture shoe; Complete Time: 13:43 rn Administered Medications: No medications were administered Disposition: 08/24/19 12:26 Discharged to Home. Impression: Nondisplaced fracture of proximal phalanx of right great toe. - Condition is Stable. - Discharge Instructions: Toe Fracture. - Medication Reconciliation Form, Thank You Letter, Antibiotic Education, Prescription Opioid Use form. - Follow up: Private Physician; When: As needed; Reason: Recheck today's complaints, Re-evaluation by your physician. - Problem is new. - Symptoms have improved. Signatures: Dispatcher [employer] EDMS Carloz Chatterjee MD MD rn Calderon, Audri RN RN aa5 Mikel Noonan RN RN bp Corrections: (The following items were deleted from the chart) 11:01 11:01 Allergies: Codeine; bp bp 13:44 12:26 08/24/2019 12:26 Discharged to Home. Impression: Nondisplaced fracture of bp proximal phalanx of right great toe. Condition is Stable. Forms are Medication Reconciliation Form, Thank You Letter, Antibiotic Education, Prescription Opioid Use. Follow up: Private Physician; When: As needed; Reason: Recheck today's complaints, Re-evaluation by your physician. Problem is new. Symptoms have improved. rn
== END 2019-08-24 13:44 | disposition home or self-care (01) ==
LOC: ER 10:42
DX: S92.414A Nondisplaced fracture of proximal phalanx of right great toe, initial encounter for closed fracture (principal); W19.XXXA Unspecified fall, initial encounter; Y93.9 Activity, unspecified; Y92.9 Unspecified place or not applicable; I10 Essential (primary) hypertension; Z88.5 Allergy status to narcotic agent
CPT/HCPCS: 36415; 80048; 84145; 84550; 85025; 99284

== ENCOUNTER 2021-03-16 08:01 | Day surgery (SDC) | payer OTHER ==
[2021-03-16] MEDS ORDERED: Ringers Lactate 1,000 ML IV ONE (08:27)
[2021-03-16] MEDS ORDERED: propofoL 200 MG/20 ML VIAL IV ONE (09:25)
[2021-03-16] MEDS ORDERED: LIDOCAINE 1% MPF 5 ML VIAL ONE (09:25)
--- NOTE | 2021-03-16 10:12 | ENDO RPT ---
[address], [address] COLONOSCOPY PROCEDURE REPORT EXAM DATE: 03/16/2021 PATIENT NAME: Danna Phillips MR #: [id number] BIRTHDATE: 1935 ATTENDING: Noah Beck DR STATUS: outpatient INSURANCE CLAIM AUDITOR: Isa Ireland RN and Naty Correa INDICATIONS: The patient is a 85 yr old Female here for a colonoscopy due to positive cologuard stool DNA test PROCEDURE PERFORMED: Colonoscopy with biopsy - cold polypectomy MEDICATIONS: Per Anesthesia. ESTIMATED BLOOD LOSS: None CONSENT: The patient understands the risks and benefits of the procedure and understands that these risks include, but are not limited to: sedation, allergic reaction, infection, perforation and/or bleeding. Alternative means of evaluation and treatment include, among others: physical exam, x-rays, and/or surgical intervention. The patient elects to proceed with this endoscopic procedure. DESCRIPTION OF PROCEDURE: During intra-op preparation period all mechanical medical equipment was checked for proper function. Hand hygiene and appropriate measures for infection prevention was taken. Procedure, possible complications, alternatives including, but not limited to possibility of bleeding, perforation, tear, infection, sepsis, need for surgery, need for blood transfusion, were explained to the patient. After the risks, benefits and alternatives of the procedure were thoroughly explained, Informed consent was verified, confirmed and timeout was successfully executed by the treatment team. The patient was placed in the left lateral position. A digital rectal exam was performed and revealed internal hemorrhoids, A digital rectal exam was performed and revealed external hemorrhoids, and A digital rectal exam was performed and revealed several skin tags. After appropriate level of anesthesia, the scope was passed. The EC-[id number] ([id number]) endoscope was introduced through the anus and advanced to the cecum, which was identified by both the appendix and ileocecal valve. The quality of the prep was fair. The instrument was then slowly withdrawn as the colon was fully examined. Scope withdrawal time was 12 minutes. COLON FINDINGS: Moderate diverticulosis was noted in the sigmoid colon. No bleeding was noted from the diverticulosis. Two smooth and polypoid shaped semi-pedunculated polyps ranging between 3-7mm in size with friable surfaces were found at the cecum and in the sigmoid colon. A polypectomy was performed using snare cautery. The resection was complete, the polyp tissue was completely retrieved and sent to histology. Small internal and external hemorrhoids were found. Retroflexed views revealed no abnormalities. The scope was then completely withdrawn from the patient and the procedure terminated. ADVERSE EVENTS: There were no complications. IMPRESSIONS: 1. Moderate diverticulosis was noted in the sigmoid colon 2. Two semi-pedunculated polyps ranging between 3-7mm in size were found at the cecum and in the sigmoid colon; polypectomy was performed using snare cautery 3. Small internal and external hemorrhoids RECOMMENDATIONS: 1. avoid NSAIDS for 2 weeks 2. await biopsy results 3. follow-up: office 2 week(s) 4. Monitor for any evidence of rectal bleeding. 5. yearly hemoquant 6. hemorrhoidal hygiene 7. increase dietary water RECALL: for Colonoscopy, pending biopsy results. Noah Beck DR eSigned: Noah Beck DR 03/16/2021 10:12 AM cc: CPT CODES: ICD9 CODES: PATIENT NAME: Danna Phillips MR#: [id number]
[2021-03-16] MEDS ORDERED: GLYCOPYRROLATE 0.2 MG/ML SYR ONE (10:35)
[2021-03-16 10:56] VITALS: BP 145/77; TEMP 97.4; O2SAT 98
== END 2021-03-16 10:36 | disposition home or self-care (01) ==
LOC: OR 08:01
PROVIDERS: ATTEND Surgery
PROC: 0DBN8ZX Excision of Sigmoid Colon, Via Natural or Artificial Opening Endoscopic, Diagnostic (ICD-10-PCS; 2021-03-16)
PROC: 0DBH8ZX Excision of Cecum, Via Natural or Artificial Opening Endoscopic, Diagnostic (ICD-10-PCS; principal; 2021-03-16 09:30)
DX: R19.5 Other fecal abnormalities (principal); D12.0 Benign neoplasm of cecum; D12.5 Benign neoplasm of sigmoid colon; K64.8 Other hemorrhoids; K64.4 Residual hemorrhoidal skin tags; K57.30 Diverticulosis of large intestine without perforation or abscess without bleeding; Z20.822 Contact with and (suspected) exposure to COVID-19
CPT/HCPCS: 88305; 45385; U0003; J2704; J7120

== ENCOUNTER 2023-12-10 10:03 | Emergency (ER) | payer MEDICARE ==
--- OUTSIDE RECORDS SUMMARY | 2023-12-10 10:07 | XMS REPORT | Continuity of Care Document ---
Author Name Unknown Address [address] [facility] [address] [place] [id number] [facility] Address [address] [facility] [address] [place] [address] Care Team Providers Care Oil Well Driller Name Role Phone Evelyn Heredia Attending Clinician Unavailable Billy Flowers Attending Clinician Unavailable Karly John Attending Clinician Unavailable Jumana Schwab Attending Clinician Samantha Nieves Attending Clinician [phone] Gutier[address] Attending Clinician Tarah Sherman Attending Clinician [phone] Radha Dawn Attending Clinician [phone] Payers Payer Name Policy Type Policy Number Effective Date Expirati on Date Source [facility] (MEDICARE REPLACEMENT HMO) SHASTA 2022 00:00:00 [employer] MEDICARE ADVANTAGE WELL[employer] 53 [id number] 2020 00:00:00 [facility] Problems Condition Name Condition Details Condition Category Status Onset Date Resolution Date Last Treatment Date Treating Clinician Comments Source SI - Stress incontinen ce Stress incontinen ce Problem Active [facility] [id number] Positive colorectal cancer screening using Cologuard test Problem Active [facility] Diarrhea Diarrhea Problem Active Commo n [facility] [id number] +5th digit eff 12/30/19*CK D (chronic kidney disease) stage 3, GFR 30-59 ml/min Problem Active [facility] [id number] Diminished pulses in lower extremity Problem Active [facility] [id number] Acute rheumatoid arthritis Problem Active [facility] [id number] Intrinsic eczema Problem Active [facility] [id number] Acute pain of left knee Problem Active [facility] Chronic obstructiv e pulmonary disease Chronic obstructiv e pulmonary disease, unspecifie d Problem Active [facility] [id number] Scoliosis, unspecifie d scoliosis type, unspecifie d spinal region Problem Active [facility] Depression [facility] [id number] Rash and nonspecifi c skin eruption Problem Active [facility] Pharyngiti s Pharyngiti s Problem Active [facility] Gastroesop hageal reflux disease Gastroesop hageal reflux disease Problem Active [facility] Hearing loss Hearing loss Problem Active [facility] [id number] Right foot pain Problem Active [facility] [id number] Itching Problem Active Commo n [facility] [id number] Wears hearing aid in left ear Problem Active [facility] [id number] Follow-up exam Problem Active [facility] Benign hypertensi on Benign hypertensi on Problem Active [facility] [id number] Depression , unspecifie d depression type Problem Active [facility] Incontinen ce of urine Incontinen ce of urine Problem Active [facility] [id number] Acquired hypothyroi dism Problem Active [facility] [id number] Sinus pressure Problem Active [facility] Gout Gout Problem Active [facility] Dizziness Dizziness Problem Active Com mon [facility] [id number] Bilateral low back pain without sciatica, unspecifie d chronicity Problem Active [facility] 75410464 Irritable bowel syndrome with both constipati on and diarrhea Problem Active [facility] 543312755 Swollen feet Problem Active [facility] 919889752 Skin excoriatio n Problem Active [facility] Sinus arrest Sinus pause Problem Active [facility] 717623142 Idiopathic progressiv e neuropathy Problem Active [facility] 149859599 Screening for colon cancer Problem Active [facility] Hypoglycem ia Hypoglycem ia Problem Active [facility] 667832840 Pituitary tumor Problem Active [facility] Mixed hyperlipid emia Mixed hyperlipid emia Problem Active [facility] 287284553 Peripheral edema Problem Active [facility] 97429472 Forgetfuln ess Problem Active [facility] Vitamin D deficiency Vitamin D deficiency , unspecifie d Problem Active [facility] 888977303 Irritable bowel syndrome with diarrhea Problem Active [facility] 18499499 Loss of appetite Problem Active [facility] Allergies, Adverse Reactions, Alerts Allergy Name Allergy Type Status Severity Reaction(s) Onset Date Inactive Date Treating Clinician Comments Source 235 Drug allergy Active Unknown [facility] 0 Drug allergy Active intolerance [facility] gemfibro zil gemfibro zil Active nausea and vomiting [facility] Social History Social Habit Start Date Stop Date Quantity Comments Source History of Tobacco Use [facility] Sex Assigned At [facility] Smoking Status Start Date Stop Date Source Former Smoker 2021-01-18 00:00:00 2021-01-18 00:00:00 [facility] Medications Ordered Medication Name Filled Medication Name Start Date Stop Date Current Medication? Ordering Clinician Indication Dosage Frequency Signature (SIG) Comments Components Source Gabapentin 100 MG Gabapentin 100 MG 07-19 00:00: 00 No 1{capsu le} QD Gabapentin 100 MG Gabapentin 100 MG Gabapentin 100 MG 07-19 00:00: 00 No 1{capsu le} QD Gabapentin 100 MG Hydrochloro thiazide 12.5 MG Hydrochloro thiazide 12.5 MG 2019-0314 00:00: 00 No 1{table t_in_th e_morni ng} QD Hydrochlor othiazide 12.5 MG Hydrochloro thiazide 12.5 MG Hydrochloro thiazide 12.5 MG 2019-03 00:00: 00 No 1{table t_in_th e_morni ng} QD Hydrochlor othiazide 12.5 MG Furosemide Furosemide 917 00:00: 00 Yes Karly Millender 1 tablet [facility] Ketoconazol e Ketoconazol e 8 00:00: 00 12-03 00:00 :00 No Karly Millender 1 applicatio n to affected areas [facility] Enalapril Maleate Enalapril Maleate 10-06 00:00: 00 Yes Karly Millender 1 tablet [facility] Triamcinolo ne Acetonide Triamcinolo ne Acetonide 12-25 00:00: 00 Yes Karly Millender 1 applicatio n to affected area [facility] Fish Oil Fish Oil Yes Karly Millender 1 capsule [facility] Iron Iron Yes Karly Millender 1 tablet [facility] Vitamin D Vitamin D Yes Karly Millender 1 tablet [facility] Zolof Zoloft Yes Karly Millender 1 tablet [facility] Singulair Singulair Yes Karly Millender TAKE 1 TABLET BY MOUTH EVERY DAY FOR ALLERGIES [facility] Flonase Flonase Yes Karly Millender 2 sprays [facility] Zoloft Yes Karly Millender 1 tablet [facility] Levothyroxi ne Sodium Levothyroxi ne Sodium Yes Karly Millender 1 tablet on an empty stomach in the morning [facility] Proventil HFA Proventil HFA Yes Karly Millender 2 puffs as needed [facility] Amlodipine Besylate Amlodipine Besylate Yes Karly Millender 1 tablet [facility] sertraline hcl 100 mg tablet sertraline hcl 100 mg tablet Yes [facility] Dyazide Dyazide Yes Karly John 1 EACH ONCE A DAY IN THE AM ORALLY [facility] Oxybutynin Chloride ER Oxybutynin Chloride ER Yes Karly John 1 tablet [facility] Anoro Ellipta Anoro Ellipta Yes Karly John 1 puff [facility] Enalapril Maleate 20 MG Enalapril Maleate 20 MG No 1{table t} Enalapril Maleate 20 MG Anoro Ellipta 62.5-25 MCG/INH Anoro Ellipta 62.5-25 MCG/INH No 1{puff} QD Anoro Ellipta 62.5-25 MCG/INH Vitamin D 2000 UNIT Vitamin D 2000 UNIT No 1{table t} QD Vitamin D 2000 UNIT Amlodipine Besylate 10 MG Amlodipine Besylate 10 MG No 1{table t} QD Amlodipine Besylate 10 MG Zoloft 50 MG Zoloft 50 MG No 1{table t} QD Zoloft 50 MG Levothyroxi ne Sodium 75 MCG Levothyroxi ne Sodium 75 MCG No QD Levothyrox ine Sodium 75 MCG Zoloft 100 mg Zoloft 100 mg No 1{table t} QD Zoloft 100 mg atorvastati n calcium 20 mg tablet atorvastati n calcium 20 mg tablet Yes [facility] Iron 325 (65 Fe) MG Iron 325 (65 Fe) MG No 1{table t} QD Iron 325 (65 Fe) MG Enalapril Maleate 20 MG Enalapril Maleate 20 MG No 1{table t} Enalapril Maleate 20 MG Anoro Ellipta 62.5-25 MCG/INH Anoro Ellipta 62.5-25 MCG/INH No 1{puff} QD Anoro Ellipta 62.5-25 MCG/INH Vitamin D 2000 UNIT Vitamin D 2000 UNIT No 1{table t} QD Vitamin D 2000 UNIT Amlodipine Besylate 10 MG Amlodipine Besylate 10 MG No 1{table t} QD Amlodipine Besylate 10 MG Zoloft 50 MG Zoloft 50 MG No 1{table t} QD Zoloft 50 MG Levothyroxi ne Sodium 75 MCG Levothyroxi ne Sodium 75 MCG No QD Levothyrox ine Sodium 75 MCG Zoloft 100 mg Zoloft 100 mg No 1{table t} QD Zoloft 100 mg Iron 325 (65 Fe) MG Iron 325 (65 Fe) MG No 1{table t} QD Iron 325 (65 Fe) MG Gabapentin 100 MG Gabapentin 100 MG No 1{capsu le} QD Gabapentin 100 MG losartan potassium 100 mg tablet losartan potassium 100 mg tablet Yes [facility] Vitamin D 2000 UNIT Vitamin D 2000 UNIT No 1{table t} QD Vitamin D 2000 UNIT Anoro Ellipta 62.5-25 MCG/INH Anoro Ellipta 62.5-25 MCG/INH No 1{puff} QD Anoro Ellipta 62.5-25 MCG/INH Levothyroxi ne Sodium 75 MCG Levothyroxi ne Sodium 75 MCG No QD Levothyrox ine Sodium 75 MCG hydroCHLORO thiazide 12.5 MG hydroCHLORO thiazide 12.5 MG No 1{table t_in_th e_morni ng} QD hydroCHLOR Othiazide 12.5 MG Zoloft 100 mg Zoloft 100 mg No 1{table t} QD Zoloft 100 mg Iron 325 (65 Fe) MG Iron 325 (65 Fe) MG No 1{table t} QD Iron 325 (65 Fe) MG amLODIPine Besylate 10 MG amLODIPine Besylate 10 MG No 1{table t} QD amLODIPine Besylate 10 MG Iron 325 (65 Fe) MG Iron 325 (65 Fe) MG No 1{table t} QD Iron 325 (65 Fe) MG Gabapentin 100 MG Gabapentin 100 MG No 1{capsu le} QD Gabapentin 100 MG Vitamin D 2000 UNIT Vitamin D 2000 UNIT No 1{table t} QD Vitamin D 2000 UNIT levothyroxi ne sodium 50 mcg tablet levothyroxi ne sodium 50 mcg tablet Yes [facility] amLODIPine Besylate 10 MG amLODIPine Besylate 10 MG No 1{table t} QD amLODIPine Besylate 10 MG Zoloft 100 mg Zoloft 100 mg No 1{table t} QD Zoloft 100 mg Anoro Ellipta 62.5-25 MCG/INH Anoro Ellipta 62.5-25 MCG/INH No 1{puff} QD Anoro Ellipta 62.5-25 MCG/INH Levothyroxi ne Sodium 75 MCG Levothyroxi ne Sodium 75 MCG No QD Levothyrox ine Sodium 75 MCG hydroCHLORO thiazide 12.5 MG hydroCHLORO thiazide 12.5 MG No hydroCHLOR Othiazide 12.5 MG Gabapentin 100 MG Gabapentin 100 MG No 2{capsu le} BID Gabapentin 100 MG Iron 325 (65 Fe) MG Iron 325 (65 Fe) MG No 1{table t} QD Iron 325 (65 Fe) MG Enalapril Maleate 20 MG Enalapril Maleate 20 MG No Enalapril Maleate 20 MG sertraline hcl 50 mg tablet sertraline hcl 50 mg tablet Yes [facility] albuterol sulfate hfa 108 (90 base) mcg/act aerosol soln albuterol sulfate hfa 108 (90 base) mcg/act aerosol soln Yes [facility] clonidine hcl 0.1 mg tablet clonidine hcl 0.1 mg tablet Yes [facility] sertraline hcl 100 mg tablet sertraline hcl 100 mg tablet Yes [facility] atorvastati n calcium 20 mg tablet atorvastati n calcium 20 mg tablet Yes [facility] losartan potassium 100 mg tablet losartan potassium 100 mg tablet Yes [facility] levothyroxi ne sodium 50 mcg tablet levothyroxi ne sodium 50 mcg tablet Yes [facility] sertraline hcl 50 mg tablet sertraline hcl 50 mg tablet Yes [facility] albuterol sulfate hfa 108 (90 base) mcg/act aerosol soln albuterol sulfate hfa 108 (90 base) mcg/act aerosol soln Yes [facility] sertraline hcl 100 mg tablet sertraline hcl 100 mg tablet Yes [facility] clonidine hcl 0.1 mg tablet clonidine hcl 0.1 mg tablet Yes [facility] sertraline hcl 100 mg tablet sertraline hcl 100 mg tablet Yes [facility] atorvastati n calcium 20 mg tablet atorvastati n calcium 20 mg tablet Yes [facility] losartan potassium 100 mg tablet losartan potassium 100 mg tablet Yes [facility] levothyroxi ne sodium 50 mcg tablet levothyroxi ne sodium 50 mcg tablet Yes [facility] sertraline hcl 50 mg tablet sertraline hcl 50 mg tablet Yes [facility] albuterol sulfate hfa 108 (90 base) mcg/act aerosol soln albuterol sulfate hfa 108 (90 base) mcg/act aerosol soln Yes [facility] atorvastati n calcium 20 mg tablet atorvastati n calcium 20 mg tablet Yes [facility] clonidine hcl 0.1 mg tablet clonidine hcl 0.1 mg tablet Yes [facility] sertraline hcl 100 mg tablet sertraline hcl 100 mg tablet Yes [facility] atorvastati n calcium 20 mg tablet atorvastati n calcium 20 mg tablet Yes [facility] losartan potassium 100 mg tablet losartan potassium 100 mg tablet Yes [facility] levothyroxi ne sodium 50 mcg tablet levothyroxi ne sodium 50 mcg tablet Yes [facility] sertraline hcl 50 mg tablet sertraline hcl 50 mg tablet Yes [facility] albuterol sulfate hfa 108 (90 base) mcg/act aerosol soln albuterol sulfate hfa 108 (90 base) mcg/act aerosol soln Yes [facility] losartan potassium 100 mg tablet losartan potassium 100 mg tablet Yes [facility] levothyroxi ne sodium 50 mcg tablet levothyroxi ne sodium 50 mcg tablet Yes [facility] sertraline hcl 50 mg tablet sertraline hcl 50 mg tablet Yes [facility] albuterol sulfate hfa 108 (90 base) mcg/act aerosol soln albuterol sulfate hfa 108 (90 base) mcg/act aerosol soln Yes [facility] Vital Signs Vital Name Observation Time Observation Value Comments S kaykay height 2021-01-19 08:40:00 68 [in_i] Commo n [facility] weight 2021-01-19 08:40:00 162 [lb_av] Comm on [facility] temperature 2021-01-19 08:40:00 97.2 [degF] Com [facility] bmi 2021-01-19 08:40:00 24.63 kg/m2 Comm on [facility] oximetry 2021-01-19 08:40:00 95 % Commo n [facility] respiratory rate 2021-01-19 08:40:00 16 /min [facility] blood pressure systolic 2021-01-19 08:40:00 126 mm[Hg] [facility] blood pressure diastolic 2021-01-19 08:40:00 66 mm[Hg] [facility] height 2020-11-21 10:00:00 68 [in_i] Commo n [facility] weight 2020-11-21 10:00:00 162 [lb_av] Comm on [facility] temperature 2020-11-21 10:00:00 98.1 [degF] Com [facility] bmi 2020-11-21 10:00:00 24.63 kg/m2 Comm on [facility] oximetry 2020-11-21 10:00:00 95 % Commo n [facility] respiratory rate 2020-11-21 10:00:00 20 /min Common [facility] blood pressure systolic 2020-11-21 10:00:00 158 mm[Hg] [facility] blood [facility] diastolic 2020-11-21 10:00:00 88 mm[Hg] [facility] height 2020-08-22 09:40:00 68 [in_i] Commo n [facility] weight 2020-08-22 09:40:00 166.6 [lb_av] Co [facility] temperature 2020-08-22 09:40:00 97.8 [degF] Com [facility] bmi 2020-08-22 09:40:00 25.33 kg/m2 Comm on [facility] oximetry 2020-08-22 09:40:00 90 % Commo n [facility] blood pressure systolic 2020-08-22 09:40:00 145 mm[Hg] [facility] blood pressure diastolic 2020-08-22 09:40:00 68 mm[Hg] Common [facility] height 2020-07-19 13:00:00 68 [in_i] Commo n [facility] weight 2020-07-19 13:00:00 167.4 [lb_av] Co on [facility] temperature 2020-07-19 13:00:00 97.8 [degF] Com [facility] bmi 2020-07-19 13:00:00 25.45 kg/m2 Comm on [facility] oximetry 2020-07-19 13:00:00 91 % Commo n [facility] blood pressure systolic 2020-07-19 13:00:00 126 mm[Hg] [facility] blood pressure diastolic 2020-07-19 13:00:00 56 mm[Hg] Common [facility] height 2020-07-19 13:20:00 68 [in_i] Commo n [facility] weight 2020-07-19 13:20:00 167.4 [lb_av] Co mmon [facility] temperature 2020-07-19 13:20:00 97.8 [degF] Com mon [facility] bmi 2020-07-19 13:20:00 25.45 kg/m2 Comm on [facility] oximetry 2020-07-19 13:20:00 91 % Commo n [facility] respiratory rate 2020-07-19 13:20:00 20 /min [facility] blood pressure systolic 2020-07-19 13:20:00 126 mm[Hg] [facility] blood pressure diastolic 2020-07-19 13:20:00 56 mm[Hg] [facility] Encounters Start Date/Time End Date/Time Encounter Type Admission Type Attending Clinicians Care Facility Care Department Encounter ID Source 2021-04-25 13:41:35 Outpatient Evelyn Heredia [facility] ST[facility] [id number] [facility] 2021-04-25 13:07:07 Outpatient Evelyn Heredia [facility] ST[facility] [id number] [facility] 2021-04-25 12:18:03 Outpatient Evelyn Heredia [facility] ST[facility] [id number] [facility] 2021-04-25 12:12:15 Outpatient Billy Flowers STLMLC STL[facility]C [id number] [facility] 2021-04-25 12:01:17 Outpatient [facility]C ST[facility] [id number] [facility] 2021-04-25 11:46:35 Outpatient Karly John [facility] [id number] [facility] 2021-04-25 11:38:50 [facility] [id number] [facility] 2021-04-25 11:30:42 Outpatient Karly John [facility] [id number] [facility] 2021-04-25 11:29:10 Outpatient Karly John [facility] [id number] [facility] 2021-04-25 11:27:20 Outpatient Evelyn Heredia [facility] [id number] [facility] 2021-04-25 11:12:[address] [facility] [id number] [facility] 2021-04-25 11:10[facility]39 [facility] [id number] [facility] 2023-12-03 16:15:00 2023-12-03 17:00:00 [facility] Follow Up Jumana Schwab [id number] [id number] [facility] 2023-12-03 11:15:00 2023-12-03 12:00:00 [facility] Follow Up Jumana Jenningslazaro DEV DEV [id number] [facility] 2023-11-26 19:30:00 2023-11-26 20:30:00 [facility] IHT Assessment - Follow Up [facility] [id number] Z56 [facility] 2023-11-26 14:30:00 2023-11-26 15:30:00 [facility] IHT Assessment - Follow Up [facility] DEV DEV [id number] Z56 [facility] 2023-11-11 15:15:00 2023-11-11 16:00:00 [facility] Follow Up Jumana Zaheer [id number] RS8 [facility] 2023-11-11 10:15:00 2023-11-11 11:00:00 [facility] Follow Up Jumana Jenningslazaro DEV DEV [id number] RS8 [facility] 2023-10-31 19:00:00 2023-10-31 20:00:00 [facility] IHT Assessment [facility] [id number] [facility] 2023-10-31 14:00:00 2023-10-31 15:00:00 [facility] IHT Assessment [facility] DEV DEV [id number] 7CW [facility] 2023-10-28 15:15:00 2023-10-28 16:00:00 [facility] Follow Up Jumana Zaheer [id number] [facility] 2023-10-28 10:15:00 2023-10-28 11:00:00 [facility] Follow Up Jumana Schwab DEV DEV [id number] EFG [facility] 2023-10-06 17:15:00 2023-10-06 18:00:00 [facility] Follow Up Jumana Knlazaro [id number] [facility] 2023-09-25 20:00:00 2023-09-25 21:00:00 [facility] IHT Assessment [facility] [id number] EUH [facility] 2023-05-23 15:00:00 2023-05-23 16:00:00 [facility] Provider Initial Visit [address] Gutierrez [id number] [facility] 2022-11-25 14:45:00 2022-11-25 15:45:00 [facility] Initial Visit Tarah Sherman [id number] [facility] 2022-08-19 16:30:00 2022-08-19 17:30:00 SO Dawn [id number] GWS [facility] 2022-05-23 00:00:00 2022-05-23 00:00:00 Outpatient DMG DMG [id number] [facility] 2022-05-23 00:00:00 2022-05-23 00:00:00 Outpatient DMG DMG [id number] [facility] 2022-01-15 00:00:00 2022-01-15 00:00:00 Outpatient DMG DMG [id number] [facility] 2021-06-25 00:00:00 2021-06-25 00:00:00 (TEL) STLMLC STLMLC [id number] [facility] 2021-03-27 00:00:00 2021-03-27 00:00:00 (TEL) STLMLC STLMLC [id number] [facility] 2021-03-20 00:00:00 2021-03-20 00:00:00 (TEL) STLMLC STLMLC [id number] [facility] 2021-02-28 00:00:00 2021-02-28 00:00:00 (TEL) STLMLC STLMLC [id number] [facility] 2021-01-30 00:00:00 2021-01-30 00:00:00 (TEL) STLMLC STLMLC [id number] [facility] 2021-01-19 00:00:00 2021-01-19 00:00:00 OFFICE VISIT EST PT LEVEL 3 [facility]LMLC ST[facility] [id number] [facility] 2020-12-21 00:00:00 2020-12-21 00:00:00 (TEL) STLMLC STLMLC [id number] [facility] 2020-11-21 00:00:00 2020-11-21 00:00:00 OFFICE VISIT ESTAB PT LEVEL 4 STLMLC STLMLC [id number] [facility] 2020-11-09 00:00:00 2020-11-09 00:00:00 (TEL) STLMLC STLMLC [id number] [facility] 2020-10-12 00:00:00 2020-10-12 00:00:00 (TEL) STLMLC STLMLC [id number] [facility] 2020-08-29 00:00:00 2020-08-29 00:00:00 (TEL) STLMLC STLMLC [id number] [facility] 2020-08-22 00:00:00 2020-08-22 00:00:00 OFFICE VISIT NEW PT LEVEL 3 STLMLC ST[facility]MLC [id number] [facility] 2020-08-07 00:00:00 2020-08-07 00:00:00 (TEL) STLMLC STLMLC [id number] [facility] 2020-07-19 00:00:00 2020-07-19 00:00:00 [facility] STL[facility] STLMLC [id number] [facility] 2020-07-19 00:00:00 2020-07-19 00:00:00 OFFICE VISIT ESTAB PT LEVEL 4 STLMLC STLMLC [id number] [facility] 2020-03-13 00:00:00 2020-03-13 00:00:00 Outpatient [facility]LMLC [facility] [id number] [facility] 2020-01-06 00:00:00 2020-01-06 00:00:00 Outpatient [facility]MLC [facility] [id number] [facility] 2019-12-16 09:20:00 2019-12-16 09:20:00 Outpatient [facility] [id number] [facility] 2019-11-04 08:00:00 2019-11-04 08:00:00 Outpatient [facility] [id number] [facility] 2019-10-07 14:26:00 2019-10-07 14:26:[address] [facility] [id number] [facility] 2019-10-07 13:20:00 2019-10-07 13:20:[address] [facility] [id number] [facility] 2019-09-26 12:17:00 2019-09-26 12:17:[address] [facility] [id number] [facility] 2019-09-16 14:40:00 2019-09-16 14:40:[address] [facility] [id number] [facility] 2019-08-03 10:38:00 2019-08-03 10:38:[address] [facility] [id number] [facility] 2019-06-07 22:27:00 2019-06-07 22:27:[address] [facility] [id number] [facility] 2019-06-04 11:15:00 2019-06-04 11:15:[address] [facility] [id number] [facility] 2019-06-03 17:19:00 2019-06-03 17:19:[address] [facility] Family Medicine [id number] [facility] 2019-03-17 13:40:00 2019-03-17 13:40:[address] [facility] [address] [facility] [id number] [facility] 2019-02-11 16:52:00 2019-02-11 16:52:[address] [facility] [id number] [facility] 2019-02-08 09:25:00 2019-02-08 09:25:[address] [facility] [id number] [facility] 2018-12-10 10:10:00 2018-12-10 10:10:[address] [facility] [facility] [id number] [facility] 2018-11-26 11:17:00 2018-11-26 11:17:[address] [facility] [facility] Medicine [id number] [facility] 2018-10-29 13:05:00 2018-10-29 13:05:[address] [facility] [id number] [facility] 2018-09-23 11:34:00 2018-09-23 11:34:[address] [facility] [facility] [id number] [facility] 2018 10:46:00 2018 10:46:[address] [facility] [id number] [facility] 2018 10:45:00 2018 10:45:00 [facility] [id number] [facility] 2018-09-10 14:28:00 2018-09-10 14:28:00 [address] [facility] [id number] [facility] 2018-06-11 13:30:00 2018-06-11 13:30:[address] [facility] [id number] [facility] 2018-06-04 16:56:00 2018-06-04 16:56:[address] [facility] [facility] Medicine [id number] [facility] 2018-05-05 15:30:00 2018-05-05 15:30:[address] [facility] [id number] [facility] 2018-04-08 11:12:00 2018-04-08 11:12:[address] [facility] [facility] [id number] [facility] 2018-03-25 13:30:00 2018-03-25 13:30:[address] [facility] [facility] [id number] [facility] 2018-03-16 15:30:00 2018-03-16 15:30:[address] [facility] [facility] [id number] [facility] 2017-12-25 15:15:00 2017-12-25 15:15:[address] [facility] [facility] [id number] [facility] 2017-10-20 09:15:00 2017-10-20 09:15:[address] [facility] [facility] [id number] [facility] 2017-10-16 08:51:00 2017-10-16 08:51:[address] [facility] [facility] [id number] [facility] 2017-09-08 15:10:00 2017-09-08 15:10:[address] [facility] [facility] [id number] [facility] 2017-09-04 10:28:00 2017-09-04 10:28:[address] [facility] [facility] [id number] [facility] 2017-08-29 11:14:00 2017-08-29 11:14:[address] [facility] [facility] [id number] [facility] 2017-08-21 10:00:00 2017-08-21 10:00:[address] [facility] [facility] [id number] [facility] Notes Date/Time Note Provider Source 2023-12-03 11:15:00 Patient's language for this interaction: Irish Historical Data Self Management/Adverse Findings/Barriers: Yes Upcoming provider appointments: Yes Geriatrics Team - Consult Note Compiled from Geriatric Tech, Carpenter/Labor, and Esl Teacher Visits <hr> Prior Esl Teacher Assessment Summary for Care Team ### Recommendations for PCP Dear Dr. Pittman, I had the pleasure of speaking with your patient, Ms. Danna Gu, as part of our [facility] program. Our team includes an EMT seeing her in her home, a geriatric nurse caser shoe parts, and quarterly consultation visits by me. During the telephonic visit, I emphasized to her the need to address her visual and hearing impairments, using a PERS device in case of a fall, and because she hasn't been taking her Xanax over the past 2 weeks, we agreed to continue to avoid this if possible to further reduce risk of fall. Please don't hesitate to reach out if you would like to discuss any of the above. 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 Lives alone in a one story 375 ft home, but daughter lives next door in main house and visits 2 times a day; daughter helps with laundry and doc appts. Member Independent with ADLs. Uses walker outside home <hr> Patient Priorities Care The one thing I want to focus on is managing my chronic pain, so that I can take better care of my home, in service of independence ### Review of Systems Change in weight over past 6 months to 1 year? No Physical therapy 9 pound weight loss in 1 year. She is eating 3 meals a day, snacks in between and bedtime snack, plus supplements Trouble swallowing? No Speech language pathology No problems Vision issues? Need for new glasses? 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 Hearing issues? Need for evaluation, ear cleaning, hearing aids? 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
[2023-12-10] MEDS ORDERED: HYDROCODONE/APAP 5/325 MG TAB ONE (11:09)
--- NOTE | 2023-12-10 11:23 | RAD REPORT ---
EXAM DESCRIPTION: CT - Thoracic Spine W/o Cont - 12/10/2023 11:11 am CLINICAL HISTORY: Radiculopathy. PAIN COMPARISON: No comparisons TECHNIQUE: Axial CT imaging through the thoracic spine was performed with coronal and sagittal re-fo rmatted images. All CT scans are performed using dose optimization technique as appropriate and may include automated exposure control or mA/KV adjustment according to patient size. FINDINGS: Mild diffuse osteopenia is seen. Mild anterior compression fracture of the T8 vertebral mikala dy is noted, age indeterminate. No significant disc space narrowing. Thoracic spine alignment is within normal limits. No paraspinal masses or hematoma. Small bilateral pleural effusions. Prominent COPD. Large hiatal hernia. IMPRESSION: Mild T8 anterior vertebral compression deformity seen, age indeterminate. Large hiatal hernia.
--- NOTE | 2023-12-10 11:26 | RAD REPORT ---
EXAM DESCRIPTION: CT - Pelvis Wo Cont - 12/10/2023 11:13 am CLINICAL HISTORY: PAIN Fall, left hip pain COMPARISON: No comparisons TECHNIQUE: All CT scans are performed using dose optimization technique as appropriate and may inclu de automated exposure control or mA/KV adjustment according to patient size. FINDINGS: Moderate osteopenia. Significant degenerative arthritic changes in both hips, greater on the right where it is severe. No fracture, dislocation or AVN pattern is observed. 21 mm right inguinal lymph node seen. Sigmoid diverticulosis coli without diverticulitis. IMPRESSION: No acute fracture or dislocation seen. Evaluation is limited by the high degree of osteo penia. 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
--- NOTE | 2023-12-10 11:29 | RAD REPORT ---
EXAM DESCRIPTION: CT - Spine Lumbar Wo Con - 12/10/2023 11:09 am CLINICAL HISTORY: Radiculopathy. PAIN COMPARISON: No comparisons TECHNIQUE: Axial noncontrast CT imaging of the lumbar spine was performed with coronal and sagittal re-formatted images. All CT scans are performed using dose optimization technique as appropriate and may include automated exposure control or mA/KV adjustment according to patient size. FINDINGS: Prominent diffuse osteopenia. 3 mm degenerative retrolisthesis of L3 on 4 is present. Dege nerative levoscoliosis is present, mild in severity. Paraspinal tissues are normal in thickness. No paraspinal abscess or hematoma seen. Aortic atherosclerosis. Small bilateral pleural effusions. IMPRESSION: Degenerative levoscoliosis affects the lumbar spine. No acute fracture is identified.
--- NOTE | 2023-12-10 11:30 | RAD REPORT ---
EXAM DESCRIPTION: RAD - Femur Left - 12/10/2023 11:24 am CLINICAL HISTORY: PAIN COMPARISON: No comparisons FINDINGS: Moderate degenerative changes affect the left hip. No fracture, dislocation or AVN.
--- NOTE | 2023-12-10 11:55 | ER ---
Nurse's Notes [facility] Name: Danna Phillips Age: 88 yrs Sex: Female : 1935 Arrival Date: 12/10/2023 Time: 10:03 Bed 10 Private MD: Diagnosis: Fall on same level, unspecified;Pain in left hip;T8 Compression Deformity;Low back pain Presentation: 12/09 10:20 Chief complaint: Patient states: fell while going to the bathroom last night, could not iw get up off the floor, has pain to lower back and left hip , cannot bear weight on hip. 10:20 Acuity: ADRIANA 3 iw 10:21 Coronavirus screen: At this time, the client does not indicate any symptoms associated iw with coronavirus-19. Ebola Screen: No symptoms or risks identified at this time. Initial Sepsis Screen: Does the patient meet any 2 criteria? No. Patient's initial sepsis screen is negative. Does the patient have a suspected source of infection? No. Patient's initial sepsis screen is negative. Risk Assessment: Do you want to hurt yourself or someone else? Patient reports no desire to harm self or others. Onset of symptoms was December 09, 2023. 10:21 Method Of Arrival: Wheelchair iw Historical: - Allergies: 10:22 Codeine; iw 10:24 Sulfa (Sulfonamide Antibiotics); iw - PMHx: 10:22 60% kidney function; Gout; COPD; Hypertension; neuropathy; Thyroid problem; iw - Immunization history:: Adult Immunizations. - Infectious Disease History:: Denies. - Social history:: Smoking status: . Screenin:00 [facility] ED Fall Risk Assessment (Adult) History of falling in the last 3 months, ll1 including since admission Yes- physiologic fall (2 pts) Confusion or Disorientation No (0 pts) Intoxicated or Sedated No (0 pts) Impaired Gait Yes (1 pt) Mobility Assist Device Used Yes (1 pt) Altered Elimination No (0 pt) Score/Fall Risk Level 0 - 2 = Low Risk Maintained a safe environment, Hourly rounding (assess needs \T\ fall precautionary measures) done. Abuse screen: Denies threats or abuse. Nutritional screening: No deficits noted. Tuberculosis screening: No symptoms or risk factors identified. Assessment: 11:26 General: Appears uncomfortable, Behavior is calm, cooperative, appropriate for age. ll1 Pain: Complains of pain in back and L hip Pain currently is 10 out of 10 on a pain scale. Quality of pain is described as aching, throbbing. Musculoskeletal: Reports pain in back and L hip. 12:00 Reassessment: No changes from previously documented assessment. Patient and/or family ll1 updated on plan of care and expected duration. Pain level reassessed. Patient is alert, oriented x 3, equal unlabored respirations, skin warm/dry/pink. Vital Signs: 10:22 BP 152 / 73; Pulse 78; Resp 16; Temp 97.3; Pulse Ox 87% on R/A; Weight 67.59 kg; Height iw 5 ft. 10 in. ; Pain 10/10; 12:01 BP 151 / 71; Pulse 71; Resp 17; Pulse Ox 93% on R/A; Pain 6/10; ll1 10:22 Body Mass Index 21.38 (67.59 kg, 177.8 cm) iw 10:22 Pain Scale: Adult iw 12:01 Pain Scale: Adult ll1 ED Course: 10:05 Patient arrived in ED. ra3 10:11 Anhai West MD is Attending Physician. sd2 10:21 Triage completed. iw 10:23 Arm band placed on. iw 11:09 CT Thoracic Spine Wo Cont In Process Unspecified. EDMS 11:09 CT Lumbar Spine Wo Con In Process Unspecified. EDMS 11:11 CT Pelvis wo Cont In Process Unspecified. EDMS 11:15 Patient placed in an exam room, on a stretcher. ll1 11:25 XRAY Femur LEFT In Process Unspecified. EDMS 12:01 No provider procedures requiring assistance completed. Patient did not have IV access ll1 during this emergency room visit. 12:05 Patient has correct armband on for positive identification. Provided Education on: ll1 return to ED for worsening symptoms. Administered Medications: 11:26 Drug: HYDROcodone-acetaminophen PO 5 mg-325 mg 1 tabs PO once {Note: pain 10/10 RASS ll1 0.} Route: PO; 12:06 Follow up: Response: No adverse reaction; Pain is decreased; RASS: Alert and Calm (0) ll1 Medication: 12:05 VIS not applicable for this client. ll1 Outcome: 11:55 Discharge ordered by . sd2 12:01 Patient left the ED. ll1 12:01 Discharged to home via wheelchair, ll1 12:01 Condition: stable 12:01 Discharge instructions given to patient, Instructed on discharge instructions, follow up and referral plans. Demonstrated understanding of instructions, follow-up care, Signatures: Dispatcher [employer] Pilar Headley RN RN iw Lewis, Lynsay, RN RN ll1 Anahi West MD MD sd2 Crystal Wright ra3 Corrections: (The following items were deleted from the chart) 10:23 10:22 BP 152 / 73; Pulse 78bpm; Resp 16bpm; Pulse Ox 87% RA; Temp 97.3F; Pain 01/07, iw Adult; iw
--- NOTE | 2023-12-10 11:55 | EDPHYS ---
Physician Documentation [facility] Name: Danna Phillips Age: 88 yrs Sex: Female : 1935 Arrival Date: 12/10/2023 Time: 10:03 Bed 10 Private MD: ED Physician Anahi West HPI: 12/09 11:50 This 88 yrs old Female presents to ER via Wheelchair with complaints of Fall Injury, sd2 Back Pain, Hip Pain. 11:50 88 yo F presents with CC of fall in her bathroom earlier today onto her tailbone and sd2 lower back. States she had to drag herself on the floor after falling to get to her phone. No head injury or LOC. Pt reports pain to her low back, left hip and thigh areas. . Historical: - Allergies: 10:22 Codeine; iw 10:24 Sulfa (Sulfonamide Antibiotics); iw - PMHx: 10:22 60% kidney function; Gout; COPD; Hypertension; neuropathy; Thyroid problem; iw - Immunization history:: Adult Immunizations. - Infectious Disease History:: Denies. - Social history:: Smoking status: . ROS: 11:50 Constitutional: Negative for fever, chills, and weight loss, Eyes: Negative for injury, sd2 pain, redness, and discharge, Neck: Negative for injury, pain, and swelling, Cardiovascular: Negative for chest pain, palpitations, and edema, Respiratory: Negative for shortness of breath, cough, wheezing. Abdomen/GI: Negative for abdominal pain, nausea, vomiting, diarrhea. Back: Positive for injury and pain, MS/Extremity: Positive for injury and negative for deformity Skin: Negative for injury, rash, and discoloration, Neuro: Negative for headache, numbness and tingling. Exam: 11:50 Constitutional: This is a well developed, well nourished patient who is awake, alert, sd2 and in no acute distress. Head/Face: Normocephalic, atraumatic. Eyes: EOMI, normal conjunctiva bilaterally Neck: Trachea midline, no thyromegaly or masses palpated, and no cervical lymphadenopathy. Supple, full range of motion without nuchal rigidity, or vertebral point tenderness. No Meningismus. Chest/axilla: Normal chest wall appearance and motion. Nontender with no deformity. Cardiovascular: Regular rate and rhythm with a normal S1 and S2. No gallops, murmurs, or rubs. 2+ distal pulses. Respiratory: Lungs have equal breath sounds bilaterally, clear to auscultation and percussion. No rales, rhonchi or wheezes noted. No increased work of breathing, no retractions or nasal flaring. Abdomen/GI: Soft, non-tender, with normal bowel sounds. No guarding or rebound. No evidence of tenderness throughout. Back: Thoracic and lumbar spinal tenderness with associated bruising noted. No costovertebral tenderness. Full range of motion. Skin: Warm, dry with normal turgor. Normal color with no rashes, no lesions, and no evidence of cellulitis. MS/ Extremity: Pulses equal, no cyanosis. Neurovascular intact. Full, normal range of motion. Psych: Awake, alert, with orientation to person, place and time. Behavior, mood, and affect are within normal limits. Vital Signs: 10:22 BP 152 / 73; Pulse 78; Resp 16; Temp 97.3; Pulse Ox 87% on R/A; Weight 67.59 kg; Height iw 5 ft. 10 in. ; Pain 10/10; 12:01 BP 151 / 71; Pulse 71; Resp 17; Pulse Ox 93% on R/A; Pain 6/10; ll1 10:22 Body Mass Index 21.38 (67.59 kg, 177.8 cm) iw 10:22 Pain Scale: Adult iw 12:01 Pain Scale: Adult ll1 MDM: 10:29 Patient medically screened. sd2 11:50 Differential diagnosis: abrasion, closed head injury, contusion, fracture, laceration, sd2 multiple trauma, sprain, strain, Among others. Data reviewed: vital signs, nurses notes, radiologic studies. I considered the following discharge prescriptions or medication management in the emergency department Medications were administered in the Emergency Department. See MAR. Historians other than the Patient: Daughter/Son: Daughter at bedside. Care significantly affected by the following chronic conditions: Hypertension, Chronic Obstructive Pulmonary Disease, Chronic Kidney Disease. Counseling: I had a detailed discussion with the patient and/or guardian regarding the historical points, exam findings, and any diagnostic results supporting the discharge/admit diagnosis, radiology results, the need for outpatient follow up, to return to the emergency department if symptoms worsen or persist or if there are any questions or concerns that arise at home. Response to treatment: the patient's symptoms have markedly improved after treatment. ED course: Radiology shows T8 compression deformity that appears subacute. The patient reports ongoing back pain for quite some time but does not require a specific traumatic event. There are no fractures noted elsewhere. The patient's pain is well-controlled. She is still continuing to have difficulty with ambulating or bearing weight and lives at home alone. However, her daughter does live right next door. They states she can stay with them for some time. I did also offer her inpatient rehab which she declines at this time. She will follow-up outpatient with her primary care provider and states she has a walker and other assistive devices that she would need at home already.. 12/09 10:54 Order name: XRAY Femur LEFT; Complete Time: 11:31 sd2 12/09 10:54 Order name: CT Thoracic Spine Wo Cont; Complete Time: 11:31 sd2 12/09 10:54 Order name: CT Lumbar Spine Wo Con; Complete Time: 11:31 sd2 12/09 10:54 Order name: CT Pelvis wo Cont; Complete Time: 11:31 sd2 Administered Medications: 11:26 Drug: HYDROcodone-acetaminophen PO 5 mg-325 mg 1 tabs PO once {Note: pain 01/07 RASS ll1 0.} Route: PO; 12:06 Follow up: Response: No adverse reaction; Pain is decreased; RASS: Alert and Calm (0) ll1 Disposition Summary: 12/10/23 11:55 Discharge Ordered Problem: new sd2 Symptoms: have improved sd2 Condition: Stable sd2 Diagnosis - Fall on same level, unspecified sd2 - Pain in left hip sd2 - T8 Compression Deformity sd2 - Low back pain sd2 Followup: sd2 - With: Private Physician - When: 2 - 3 days - Reason: Recheck today's complaints, Continuance of care, Re-evaluation by your physician Discharge Instructions: - Discharge Summary Sheet sd2 - Arthritis sd2 - Hip Pain sd2 Forms: - Medication Reconciliation Form sd2 - Antibiotic Education sd2 - Prescription Opioid Use sd2 - Patient Portal Instructions sd2 - Leadership Thank You Letter sd2 Signatures: Dispatcher [employer] Pilar Headley RN RN Kavin Jiang RN RN 1 Anahi West MD MD sd2 Corrections: (The following items were deleted from the chart) 10:54 10:54 Femur Left+RAD.RAD.BRZ ordered. EDMS EDMS 10:54 10:54 Thoracic Spine WO Cont+CT.RAD.BRZ ordered. EDMS EDMS 10:54 10:54 Spine Lumbar Wo Con+CT.RAD.BRZ ordered. EDMS EDMS 10:54 10:54 Pelvis Wo Cont+CT.RAD.BRZ ordered. EDMS EDMS
[2023-12-10 12:05] VITALS: BP 152/73; TEMP 97.3; O2SAT 87
== END 2023-12-10 12:01 | disposition home or self-care (01) ==
LOC: ER 10:03
DX: S22.060A Wedge compression fracture of T7-T8 vertebra, initial encounter for closed fracture (principal); M25.552 Pain in left hip; W18.30XA Fall on same level, unspecified, initial encounter
CPT/HCPCS: 72128; 72131; 72192; 99283

== ENCOUNTER 2025-01-04 16:00 | Emergency (ER) | payer MEDICARE, OTHER ==
--- OUTSIDE RECORDS SUMMARY | 2025-01-04 16:05 | XMS REPORT | Continuity of Care Document ---
Author Name Unknown Address [address] [facility] [address] [place] [address] Organization [facility] [place] Address [address] [facility] [address] [place] [address] Care Team Providers Care Railroad Watchman Name Role Phone Evelyn Heredia Attending Clinician Unavailable Billy Flowers Attending Clinician Unavailable Karly John Attending Clinician Unavailable Jumana Schwab Attending Clinician Samantha Nieves Attending Clinician Lane Gutierrez Attending Clinician Tarah Sherman Attending Clinician [phone] Radha Dawn Attending Clinician [phone] Payers Payer Name Policy Type Policy Number Effective Date Expirati on Date Source REPLACED BY [facility] (MEDICARE REPLACEMENT HMO) SHASTA 2022 00:00:00 [employer] MED[employer]ARE ADVANTAGE [employer]LL[employer] 53 [id number] 2020 00:00:00 [facility] Problems Condition Name Condition Details Condition Category Status Onset Date Resolution Date Last Treatment Date Treating Clinician Comments Source SI - Stress incontinen ce Stress incontinen ce Problem Active [facility] [id number] Positive colorectal cancer screening using Cologuard test Problem Active [facility] Diarrhea Diarrhea Problem Active Commo [facility] [id number] +5th digit eff 12/30/19*CK D (chronic kidney disease) stage 3, GFR 30-59 ml/min Problem Active [facility] [id number] Diminished pulses in lower extremity Problem Active [facility] [id number] Acute rheumatoid arthritis Problem Active [facility] [id number] Intrinsic eczema Problem Active [facility] [id number] Acute pain of left knee Problem Active [facility] Chronic obstructiv e pulmonary disease Chronic obstructiv e pulmonary disease, unspecifie d Problem Active [facility] [id number] Scoliosis, unspecifie d scoliosis type, unspecifie d spinal region Problem Active [facility] Depression Depression Problem Active C [facility] [id number] Rash and nonspecifi c skin eruption Problem Active [facility] Pharyngiti s Pharyngiti s Problem Active [facility] Gastroesop hageal reflux disease Gastroesop hageal reflux disease Problem Active [facility] Hearing loss Hearing loss Problem Active [facility] [id number] Right foot pain Problem Active [facility] [id number] Itching Problem Active [facility] [id number] Wears hearing aid in left ear Problem Active [facility] [id number] Follow-up exam Problem Active [facility] Benign hypertensi on Benign hypertensi on Problem Active [facility] [id number] Depression , unspecifie d depression type Problem Active [facility] Incontinen ce of urine Incontinen ce of urine Problem Active [facility] [id number] Acquired hypothyroi dism Problem Active [facility] [id number] Sinus pressure Problem Active [facility] Gout Gout Problem Active [facility] Dizziness Dizziness Problem Active Com [facility] [id number] Bilateral low back pain without sciatica, unspecifie d chronicity Problem Active [facility] [id number] Irritable bowel syndrome with both constipati on and diarrhea Problem Active [facility] 727374513 Swollen feet Problem Active [facility] [id number] Skin excoriatio n Problem Active [facility] Sinus arrest Sinus pause Problem Active [facility] 502962639 Idiopathic progressiv e neuropathy Problem Active [facility] [id number] Screening for colon cancer Problem Active [facility] Hypoglycem ia Hypoglycem ia Problem Active [facility] [id number] Pituitary tumor Problem Active [facility] Mixed hyperlipid emia Mixed hyperlipid emia Problem Active [facility] [id number] Peripheral edema Problem Active [facility] [id number] Forgetfuln ess Problem Active [facility] Vitamin D deficiency Vitamin D deficiency , unspecifie d Problem Active [facility] 737963112 Irritable bowel syndrome with diarrhea Problem Active [facility] [id number] Loss of appetite Problem Active [facility] Allergies, Adverse Reactions, Alerts Allergy Name Allergy Type Status Severity Reaction(s) Onset Date Inactive Date Treating Clinician Comments Source 235 Drug allergy Active Unknown [facility] 0 Drug allergy Active intolerance [facility] gemfibro zil gemfibro zil Active nausea and vomiting [facility] Social History Social Habit Start Date Stop Date Quantity Comments Source History of Tobacco Use [facility] Sex Assigned At [facility] Smoking Status Start Date Stop Date Source Former Smoker 2021-01-18 00:00:00 2021-01-18 00:00:00 [facility] Medications Ordered Medication Name Filled Medication [...] 00:00: 00 Yes Karly Millender 1 tablet [facility] Ketoconazol e Ketoconazol e 11-03 00:00: 00 12-03 00:00 :00 No Karly Millender 1 applicatio n to affected areas [facility] Enalapril Maleate Enalapril Maleate 10-06 00:00: 00 Yes Karly Millender 1 tablet [facility] Triamcinolo ne Acetonide Triamcinolo ne Acetonide 12-25 00:00: 00 Yes Karly Millender 1 applicatio n to affected area [facility] sertraline hcl 50 mg tablet sertraline hcl 50 mg tablet Yes [facility] albuterol sulfate hfa 108 (90 base) mcg/act aerosol soln albuterol sulfate hfa 108 (90 base) mcg/act aerosol soln Yes [facility] amlodipine besylate 10 mg tablet amlodipine besylate 10 mg tablet Yes [facility] Fish Oil Fish Oil Yes Karly Millender 1 capsule [facility] Iron Iron Yes Karly Millender 1 tablet [facility] Vitamin D Vitamin D Yes Karly Millender 1 tablet [facility] Zoloft Zoloft Yes Karly Millender 1 tablet [facility] Singulair Singulair Yes Karly Millender TAKE 1 TABLET BY MOUTH EVERY DAY FOR ALLERGIES [facility] Flonase Flonase Yes Karly Millender 2 sprays [facility] Zoloft Zoloft Yes Karly Millender 1 tablet [facility] Levothyroxi ne Sodium Levothyroxi ne Sodium Yes Karly Millender 1 tablet on an empty stomach in the morning [facility] Proventil HFA Proventil HFA Yes Karly Murguiaender 2 puffs as needed [facility] Amlodipine Besylate Amlodipine Besylate Yes Karly Murguiaender 1 tablet [facility] Dyazide Dyazide Yes Karly Murguiaender 1 EACH ONCE A DAY IN THE AM ORALLY [facility] Oxybutynin Chloride ER Oxybutynin Chloride ER Yes Karly Murguiaender 1 tablet [facility] Anoro Ellipta Anoro Ellipta Yes Karly Murguiaender 1 puff [facility] Enalapril Maleate 20 MG Enalapril Maleate [...] 1{table t} QD Vitamin D 2000 UNIT amLODIPine Besylate 10 MG amLODIPine Besylate 10 [...] No Enalapril Maleate 20 MG sertraline hcl 100 mg tablet sertraline hcl [...] potassium 100 mg tablet Yes [facility] clonidine [...] base) mcg/act aerosol soln Yes [facility] levothyroxi ne sodium 50 mcg tablet levothyroxi ne sodium 50 mcg tablet Yes [facility] clonidine hcl 0.1 [...] aerosol soln Yes [facility] sertraline hcl 50 mg tablet sertraline hcl 50 mg tablet Yes [facility] clonidine hcl [...] base) mcg/act aerosol soln Yes [facility] albuterol sulfate hfa 108 [...] sodium 50 mcg tablet Yes [facility] Vital Signs Vital Name Observation Time Observation Value Comments S ource height 2021-01-19 08:40:00 68 [in_i] [facility] weight 2021-01-19 08:40:00 162 [lb_av] Comm on [facility] temperature 2021-01-19 08:40:00 97.2 [degF] Com mon [facility] bmi 2021-01-19 08:40:00 24.63 kg/m2 Comm on [facility] oximetry 2021-01-19 08:40:00 95 % [facility] respiratory rate 2021-01-19 08:40:00 16 /min [facility] blood pressure systolic 2021-01-19 08:40:00 126 mm[Hg] [facility] blood pressure diastolic 2021-01-19 08:40:00 66 mm[Hg] [facility] height 2020-11-21 10:00:00 68 [in_i] [facility] weight 2020-11-21 10:00:00 162 [lb_av] Comm on [facility] temperature 2020-11-21 10:00:00 98.1 [degF] Com [facility] bmi 2020-11-21 10:00:00 24.63 kg/m2 Comm on [facility] oximetry 2020-11-21 10:00:00 95 % [facility] respiratory rate 2020-11-21 10:00:00 20 /min [facility] blood pressure systolic 2020-11-21 10:00:00 158 mm[Hg] [facility] blood pressure diastolic 2020-11-21 10:00:00 88 mm[Hg] [facility] height 2020-08-22 09:40:00 68 [in_i] [facility] weight 2020-08-22 09:40:00 166.6 [lb_av] Co [facility] temperature 2020-08-22 09:40:00 97.8 [degF] Com [facility] bmi 2020-08-22 09:40:00 25.33 kg/m2 Comm on [facility] oximetry 2020-08-22 09:40:00 90 % [facility] blood pressure systolic 2020-08-22 09:40:00 145 mm[Hg] [facility] blood pressure diastolic 2020-08-22 09:40:00 68 mm[Hg] [facility] height 2020-07-19 13:00:00 68 [in_i] [facility] weight 2020-07-19 13:00:00 167.4 [lb_av] [facility] temperature 2020-07-19 13:00:00 97.8 [degF] Com mon [facility] bmi 2020-07-19 13:00:00 25.45 kg/m2 Comm on [facility] oximetry 2020-07-19 13:00:00 91 % [facility] blood pressure systolic 2020-07-19 13:00:00 126 mm[Hg] [facility] blood pressure diastolic 2020-07-19 13:00:00 56 mm[Hg] [facility] height 2020-07-19 13:20:00 68 [in_i] [facility] weight 2020-07-19 13:20:00 167.4 [lb_av] [facility] temperature 2020-07-19 13:20:00 97.8 [degF] Com [facility] bmi 2020-07-19 13:20:00 25.45 kg/m2 Comm on [facility] oximetry 2020-07-19 13:20:00 91 % [facility] respiratory rate 2020-07-19 13:20:00 20 /min [facility] blood pressure systolic 2020-07-19 13:20:00 126 mm[Hg] [facility] blood pressure diastolic 2020-07-19 13:20:00 56 mm[Hg] [facility] Encounters Start Date/Time End Date/Time Encounter Type Admission Type Attending [facility] Care Facility Care Department Encounter ID Source 2021-04-25 13:41:35 [facility] [id number] [facility] 2021-04-25 13:07:07 [facility] [id number] [facility] 2021-04-25 12:18:03 Out[facility] [id number] [facility] 2021-04-25 12:12:15 Outpatient Billy Flowers [facility] [id number] [facility] 2021-04-25 12:01:17 Outpatient [facility] [id number] [facility] 2021-04-25 11:46:35 Outpatient Karly John [facility] [id number] [facility] 2021-04-25 11:38:50 Outpatient Karly John [facility] ST[facility] [id number] [facility] 2021-04-25 11:30:42 Outpatient Karly John [facility] [id number] [facility] 2021-04-25 11:29:10 Outpatient Karly John [facility] [id number] [facility] 2021-04-25 11:27:20 Outpatient Evelyn Heredia [facility] ST[facility] [id number] [facility] 2021-04-25 11:12:27 Outpatient Evelyn Heredia [facility] [id number] [facility] 2021-04-25 11:10:39 Outpatient Karly John STLMLC STLC [id number] [facility] 2024-02-11 13:00:00 2024-02-11 13:45:00 [facility] Jumana Schwab DEV DEV [id number] [facility] 2024-01-27 12:30:00 2024-01-27 13:30:00 [facility] IHT Assessment - [id number] [facility] 2023-12-29 12:30:00 2023-12-29 13:30:00 [facility] [id number] [facility] 2023-12-24 13:00:00 2023-12-24 13:45:00 [facility] Follow Up Jumana Schwab DEV DEV [id number] [facility] 2023-12-03 16:15:00 2023-12-03 17:00:00 [facility] Follow Up Jumana Faustke [id number] [facility] 2023-12-03 11:15:00 2023-12-03 12:00:00 [facility] Follow Up Jumana Schwab DEV DEV [id number] [facility] 2023-11-26 19:30:00 2023-11-26 20:30:00 [facility] IHT Assessment - Follow Up Samantha [place] [id number] [facility] 2023-11-26 14:30:00 2023-11-26 15:30:00 [facility] [id number] [facility] 2023-11-11 15:15:00 2023-11-11 16:00:00 [facility] Follow Up Jumana Jenningsgradydustin [id number] [id number] [facility] 2023-11-11 10:15:00 2023-11-11 11:00:00 [facility] Follow Up Jumana Schwab DEV DEV [id number] [facility] 2023-10-31 19:00:00 2023-10-31 20:00:00 [facility] [id number] [facility] 2023-10-31 14:00:00 2023-10-31 15:00:00 [facility] [id number] [facility] 2023-10-28 15:15:00 2023-10-28 16:00:00 [facility] Follow Up Jumana Faustke [id number] [facility] 2023-10-28 10:15:00 2023-10-28 11:00:00 [facility] Follow Up Jumana Jenningsgradydustin DEV DEV [id number] [facility] 2023-10-06 17:15:00 2023-10-06 18:00:00 [facility] Follow Up Jumana Schwab [id number] FGZ [facility] 2023-09-25 20:00:00 2023-09-25 21:00:00 [facility] IHT Assessment Samantha Nieves [id number] EUH [facility] 2023-05-23 15:00:00 2023-05-23 16:00:00 [facility] Provider Initial Visit Lane kelley Martinez [id number] US3 [facility] 2022-11-25 14:45:00 2022-11-25 15:45:00 [facility] Initial Visit Tarah Sherman [id number] 9GK [facility] 2022-08-19 16:30:00 2022-08-19 17:30:00 SO Dawn [id number] GWS [facility] 2021-06-25 00:00:00 2021-06-25 00:00:00 (TEL) STLMLC [facility] [id number] [facility] 2021-03-27 00:00:00 2021-03-27 00:00:00 (TEL) [facility]C [facility] [id number] [facility] 2021-03-20 00:00:00 2021-03-20 00:00:00 (TEL) [facility]LMLC [facility] [id number] [facility] 2021-02-28 00:00:00 2021-02-28 00:00:00 (TEL) STLMLC STLMLC [id number] [facility] 2021-01-30 00:00:00 2021-01-30 00:00:00 (TEL) STLMLC STLMLC [id number] [facility] 2021-01-19 00:00:00 2021-01-19 00:00:00 OFFICE VISIT EST PT LEVEL 3 STLMLC STLMLC [id number] [facility] 2020-12-21 00:00:00 2020-12-21 00:00:00 (TEL) STLMLC STLMLC [id number] [facility] 2020-11-21 00:00:00 2020-11-21 00:00:00 OFFICE VISIT ESTAB PT LEVEL 4 STLMLC STLMLC [id number] [facility] 2020-11-09 00:00:00 2020-11-09 00:00:00 (TEL) STLMLC STLMLC [id number] [facility] 2020-10-12 00:00:00 2020-10-12 00:00:00 (TEL) STLMLC STLMLC [id number] [facility] 2020-08-29 00:00:00 2020-08-29 00:00:00 (TEL) STLMLC STLMLC [id number] [facility] 2020-08-22 00:00:00 2020-08-22 00:00:00 OFFICE VISIT NEW PT LEVEL 3 STLMLC STLMLC [id number] [facility] 2020-08-07 00:00:00 2020-08-07 00:00:00 (TEL) STLMLC STLMLC [id number] [facility] 2020-07-19 00:00:00 2020-07-19 00:00:00 SUB ANNUAL [facility] WELLNESS VISIT STLMLC STLMLC [id number] [facility] 2020-07-19 00:00:00 2020-07-19 00:00:00 OFFICE VISIT ESTAB PT LEVEL 4 STLMLC STLMLC [id number] [facility] 2020-03-13 00:00:00 2020-03-13 00:00:00 Outpatient [facility]LMLC [facility] [id number] [facility] 2020-01-06 00:00:00 2020-01-06 00:00:00 Outpatient STLMLC STLML[facility] [id number] [facility] 2019-12-16 09:20:00 2019-12-16 09:20:[address] [facility] [id number] [facility] 2019-11-04 08:00:00 2019-11-04 08:00:[address] [facility] [facility] [address] [facility] [id number] [facility] 2019-10-07 14:26:00 2019-10-07 14:26:[address] [facility] [address] [facility] [id number] [facility] 2019-10-07 13:20:00 2019-10-07 13:20:[address] [facility] [address] [facility] [id number] [facility] 2019-09-26 12:17:00 2019-09-26 12:17:[address] [facility] [address] [facility] [id number] [facility] 2019-09-16 14:40:00 2019-09-16 14:40:[address] [facility] [facility] [address] [facility] [id number] [facility] 2019-08-03 10:38:00 2019-08-03 10:38:[address] [facility] [facility] [address] [id number] [facility] 2019-06-07 22:27:00 2019-06-07 22:27:[address] [facility] [facility] [address] [id number] [facility] 2019-06-04 11:15:00 2019-06-04 11:15:[address] [facility] [facility] [address] [facility] [id number] [facility] 2019-06-03 17:19:00 2019-06-03 17:19:[address] [facility] [facility] [address] [id number] [facility] 2019-03-17 13:40:00 2019-03-17 13:40:[address] [facility] [address] [id number] [facility] 2019-02-11 16:52:00 2019-02-11 16:52:[address] [facility] [address] [facility] [id number] [facility] 2019-02-08 09:25:00 2019-02-08 09:25:00 [facility] [id number] [facility] 2018-12-10 10:10:00 2018-12-10 10:10:[address] [facility] [address] [id number] [facility] 2018-11-26 11:17:00 2018-11-26 11:17:[address] [facility] [address] [facility] [id number] [facility] 2018-10-29 13:05:00 2018-10-29 13:05:[address] [facility] [address] [facility] [id number] [facility] 2018-09-23 11:34:00 2018-09-23 11:34:[address] [facility] [address] [id number] [facility] 2018 10:46:00 2018 10:46:[address] [facility] [address] [id number] [facility] 2018 10:45:00 2018 10:45:[address] [facility] [address] [id number] [facility] 2018-09-10 14:28:00 2018-09-10 14:28:[address] [facility] [address] [facility] [id number] [facility] 2018-06-11 13:30:00 2018-06-11 13:30:[address] [facility] [address] [id number] [facility] 2018-06-04 16:56:00 2018-06-04 16:56:[address] [facility] [address] [address] [facility] [id number] [facility] 2018-05-05 15:30:00 2018-05-05 15:30:[address] [facility] [address] [address] [facility] [id number] [facility] 2018-04-08 11:12:00 2018-04-08 11:12:[address] [facility] [address] [facility] [id number] [facility] 2018-03-25 13:30:00 2018-03-25 13:30:[address] [facility] [address] [address] [facility] [id number] [facility] 2018-03-16 15:30:00 2018-03-16 15:30:[address] [facility] [address] [facility] [id number] [facility] 2017-12-25 15:15:00 2017-12-25 15:15:[address] [facility] [facility] [address] [facility] [id number] [facility] 2017-10-20 09:15:00 2017-10-20 09:15:[address] [facility] [facility] [address] [facility] [id number] [facility] 2017-10-16 08:51:00 2017-10-16 08:51:[address] [facility] [facility] [id number] [facility] 2017-09-08 15:10:00 2017-09-08 15:10:[address] [facility] [id number] [facility] 2017-09-04 10:28:00 2017-09-04 10:28:00 Outpatient [facility] Medicine [facility] [id number] [facility] 2017-08-29 11:14:00 2017-08-29 11:14:00 Outpatient [facility] Medicine [facility] [id number] [facility] 2017-08-21 10:00:00 2017-08-21 10:00:00 Outpatient [facility] Medicine [facility] [id number] [facility] Notes Date/Time Note Provider Source 2024-02-11 13:00:00 Patient's language for this interaction: [place]ian Geriatrics Team - Consult Note Compiled from Geriatric Tech, Biomedical Scientist, and Planting Machine Operator Visits <hr> Prior Planting Machine Operator Assessment Summary for Care Team ### Recommendations for PCP HPI<hr> Patient Priorities Care The one thing I want to focus on is , so that I can , in service of ### Review of Systems Past Medical History Medications Social History Home Situation Functional Assessment Vitals and Physical Exam<hr> ### Additional Planting Machine Operator Notes - Assessment by 5Ms Planting Machine Operator Notes<hr> Recommendations for patient <hr> Jumana Zaheer [facility] 2024-01-27 12:30:00 Patient's language for this interaction: [place]ian Geriatrics Team - Consult Note Compiled from Geriatric Tech, Biomedical Scientist, and Planting Machine Operator Visits <hr> Prior Planting Machine Operator Assessment Summary for Care Team ### Recommendations for PCP HPI<hr> Patient Priorities Care The one thing I want to focus on is , so that I can , in service of ### Review of Systems Past Medical History Medications Social History Home Situation Functional Assessment Vitals and Physical Exam<hr> ### Additional Planting Machine Operator Notes - Assessment by 5Ms Planting Machine Operator Notes<hr> Recommendations for patient <hr> Samantha Nieves [facility] 2023-12-29 12:30:00 Patient's language for this interaction: Malian Geriatrics Team - Consult Note Compiled from Geriatric Tech, Biomedical Scientist, and Planting Machine Operator Visits <hr> Prior Planting Machine Operator Assessment Summary for Care Team ### Recommendations for PCP Dear Dr. Pittman, I had the pleasure of speaking with your patient, Ms. Danna Gu, as part of our Community Geriatrics program. Our team includes an EMT seeing her in her home, a geriatric nurse showcase maker, and quarterly consultation visits by me. During [...] of the above. Robert Gutierrez MD 800-DEVOTED HPI<hr> Patient Priorities Care The one thing I want to focus on is , so that I can , in service of ### Review of Systems Past Medical History Medications Social History Home Situation Functional Assessment Vitals and Physical Exam Pain? No pain <hr> ### Additional Planting Machine Operator Notes - Assessment by 5Ms Matters Most - Team Assessment and Plan PPC: Advance Care Planning: Multicomplexity - Team Assessment and Plan Patient s Life: Caregiving: Social Determinants: Review of Systems: Mobility - Team Assessment and Plan Home Assessment: Physical Exam: Functional Status: Baseline activity level (including timeline of any declines if applicable) Mind - Team Assessment and Plan Mentation: Depression and Anxiety: Sleep Assessment: Substance Use: Medications - Team Assessment and Plan (including opportunities for deprescribing) How patient takes and organizes meds: Any medication concerns: Planting Machine Operator Notes<hr> Recommendations for patient Dear ____, It is our team's pleasure to help care for you at [facility]. I really enjoyed meeting with you today. [...] call our Care OnDemand line 21/10 at [phone], and a [facility] provider will be able to assist you. Warmly, Dr. Samantha Goldstein <hr> Samantha Nieves [facility] 2023-12-24 13:00:00 Patient's language for this interaction: Malian Historical Data Self Management/Adverse Findings/Barriers: Yes Upcoming provider appointments: Yes Geriatrics Team - Consult Note Compiled from Geriatric Tech, Biomedical Scientist, and Planting Machine Operator Visits <hr> Prior Planting Machine Operator Assessment Summary for Care Team ### Recommendations for PCP Dear Dr. Pittman, I had the pleasure of speaking with your patient, Ms. Danna Gu, as part of our Community Geriatrics program. Our team includes an EMT seeing her in her home, a geriatric nurse showcase maker, and quarterly consultation visits by me. 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 Methodist or spirituality Yes, she is a firm [...] from PT Denies problems <hr> ### Additional Planting Machine Operator Notes - Assessment by 5Ms Matters Most [...] organizes in pillbox q weekly Medication concerns: Planting Machine Operator Notes Planting Machine Operator notes about COPD 05/22/23: on breztri , albuterol inhaler prn Planting Machine Operator notes about HTN 05/26/23: losartan 100mg, stable per daughter and cardiology Planting Machine Operator notes about Pain 05/24: apap 500mg 1-2 tabs prn Planting Machine Operator notes about BH 05/26/22: sertraline 100mg / 50mg; d/c'ed alprazolam 05/26/23 to reduce fall risk Planting Machine Operator notes about Falls 05/24: potential factors include vision, hearing, meds, BP; d/c'ed xanax Additional Planting Machine Operator problems-based notes COPD: on breztri , albuterol [...] call our Care OnDemand line 21/10 at [phone], and a [facility] provider will be able to assist you. Warmly, Dr. Samantha Goldstein <hr> Jumana Schwab [facility] 2023-12-03 11:15:00 Patient's language for this interaction: Malian Historical Data Self Management/Adverse Findings/Barriers: Yes Upcoming provider appointments: Yes Geriatrics Team - Consult Note Compiled from Geriatric Tech, Biomedical Scientist, and Planting Machine Operator Visits <hr> Prior Planting Machine Operator Assessment Summary for Care Team ### Recommendations for PCP Dear Dr. Pittman, I had the pleasure of speaking with your patient, Ms. Danna Gu, as part of our Community Geriatrics program. Our team includes an EMT seeing her in her home, a geriatric nurse showcase maker, and quarterly consultation visits by me. 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 Methodist or spirituality Yes, she is a firm [...] from PT Denies problems <hr> ### Additional Planting Machine Operator Notes - Assessment by 5Ms Matters Most [...] after an MD/IHT joint home visit); PHQ2 6, PHQ9 08/24 Sleep assessment: Substance use: Medications - Team Assessment and Plan (including opportunities for deprescribing) How does the patient take and organize medications: self administers, organizes in pillbox q weekly Medication concerns: Planting Machine Operator Notes Planting Machine Operator notes about COPD 05/22/23: on breztri , albuterol inhaler prn Planting Machine Operator notes about HTN 05/26/23: losartan 100mg, stable per daughter and cardiology Planting Machine Operator notes about Pain 05/24: apap 500mg 1-2 tabs prn Planting Machine Operator notes about BH 05/26/22: sertraline 100mg / 50mg; d/c'ed alprazolam 05/26/23 to reduce fall risk Planting Machine Operator notes about Falls 05/24: potential factors include vision, hearing, meds, BP; d/c'ed xanax Additional Planting Machine Operator problems-based notes COPD: on breztri , albuterol [...] call our Care OnDem[facility] line 21/10 at [phone], and a [facility] provider will be able to assist you. Warmly, Dr. Samantha Goldstein <hr> Jumana Schwab [facility] 2023-11-26 14:30:00 Patient's language for this interaction: Malian Historical Data Self Management/Adverse Findings/Barriers: Yes Upcoming provider appointments: Yes Geriatrics Team - Consult Note Compiled from Geriatric Tech, Biomedical Scientist, and Planting Machine Operator Visits <hr> Prior Planting Machine Operator Assessment Summary for Care Team ### Recommendations for PCP Dear Dr. Pittman, I had the pleasure of speaking with your patient, Ms. Danna Gu, as part of our Community Geriatrics program. Our team includes an EMT seeing her in her home, a geriatric nurse showcase maker, and quarterly consultation visits by me. 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 Methodist or spirituality Yes, she is a firm [...] from PT Denies problems <hr> ### Additional Planting Machine Operator Notes - Assessment by 5Ms Matters Most [...] organizes in pillbox q weekly Medication concerns: Planting Machine Operator Notes Planting Machine Operator notes about COPD 05/22/23: on breztri , albuterol inhaler prn Planting Machine Operator notes about HTN 05/26/23: losartan 100mg, stable per daughter and cardiology Planting Machine Operator notes about Pain 05/24: apap 500mg 1-2 tabs prn Planting Machine Operator notes about BH 05/26/22: sertraline 100mg / 50mg; d/c'ed alprazolam 05/26/23 to reduce fall risk Planting Machine Operator notes about Falls 05/24: potential factors include vision, hearing, meds, BP; d/c'ed xanax Additional Planting Machine Operator problems-based notes COPD: on breztri , albuterol inhaler prn Hypothyroidism: on levothyroxine HTN: on amlodipine GERD: on pantoprazole prn MDD: on sertraline again anxiety: on alprazolam prn arthritis: on tylenol prn - uses salon patches prn <hr> Recommendations for patient Dear ____, It is our team's pleasure to help care for you at [facility]. I really enjoyed meeting with you today. [...] call our Care OnDem[facility] line 21/10 at [phone], and a [facility] provider will be able to assist you. Warmly, Dr. Samantha Goldstein <hr> [facility] 2023-11-11 10:15:00 Patient's language for this interaction: Malian Historical Data Self Management/Adverse Findings/Barriers: Yes Upcoming provider appointments: Yes Geriatrics Team - Consult Note Compiled from Geriatric Tech, Biomedical Scientist, and Planting Machine Operator Visits <hr> Prior Planting Machine Operator Assessment Summary for Care Team ### Recommendations for PCP Dear Dr. Pittman, I had the pleasure of speaking with your patient, Ms. Danna Gu, as part of our Community Geriatrics program. Our team includes an EMT seeing her in her home, a geriatric nurse showcase maker, and quarterly consultation visits by me. 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 Methodist or spirituality Yes, she is a firm [...] from PT Denies problems <hr> ### Additional Planting Machine Operator Notes - Assessment by 5Ms Matters Most [...] organizes in pillbox q weekly Medication concerns: Planting Machine Operator Notes Planting Machine Operator notes about COPD 05/22/23: on breztri , albuterol inhaler prn Planting Machine Operator notes about HTN 05/26/23: losartan 100mg, stable per daughter and cardiology Planting Machine Operator notes about Pain 05/24: apap 500mg 1-2 tabs prn Planting Machine Operator notes about BH 05/26/22: sertraline 100mg / 50mg; d/c'ed alprazolam 05/26/23 to reduce fall risk Planting Machine Operator notes about Falls 05/24: potential factors include vision, hearing, meds, BP; d/c'ed xanax Additional Planting Machine Operator problems-based notes COPD: on breztri , albuterol inhaler prn Hypothyroidism: on levothyroxine HTN: on amlodipine GERD: on pantoprazole prn MDD: on sertraline again anxiety: on alprazolam prn arthritis: on tylenol prn - uses salon patches prn <hr> Recommendations for patient Dear ____, It is our team's pleasure to help care for you at [facility]. I really enjoyed meeting with you today. [...] right away, [facility] at [phone], and a [facility] provider will be able to assist you. Warmly, Dr. Samantha Goldstein <hr> Jumana Schwab [facility] 2023-10-31 14:00:00 Patient's language for this interaction: Malian Historical Data Self Management/Adverse Findings/Barriers: Yes Upcoming provider appointments: Yes Geriatrics Team - Consult Note Compiled from Geriatric Tech, Biomedical Scientist, and Planting Machine Operator Visits <hr> Prior Planting Machine Operator Assessment Summary for Care Team ### Recommendations for PCP Dear Dr. Pittman, I had the pleasure of speaking with your patient, Ms. Danna Gu, as part of our Community Geriatrics program. Our team includes an EMT seeing her in her home, a geriatric nurse showcase maker, and quarterly consultation visits by me. 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 Methodist or spirituality Yes, she is a firm [...] from PT Denies problems <hr> ### Additional Planting Machine Operator Notes - Assessment by 5Ms Matters Most [...] organizes in pillbox q weekly Medication concerns: Planting Machine Operator Notes Planting Machine Operator notes about COPD 05/22/23: on breztri , albuterol inhaler prn Planting Machine Operator notes about HTN 05/26/23: losartan 100mg, stable per daughter and cardiology Planting Machine Operator notes about Pain 05/24: apap 500mg 1-2 tabs prn Planting Machine Operator notes about BH 05/26/22: sertraline 100mg / 50mg; d/c'ed alprazolam 05/26/23 to reduce fall risk Planting Machine Operator notes about Falls 05/24: potential factors include vision, hearing, meds, BP; d/c'ed xanax Additional Planting Machine Operator problems-based notes COPD: on breztri , albuterol inhaler prn Hypothyroidism: on levothyroxine HTN: on amlodipine GERD: on pantoprazole prn MDD: on sertraline again anxiety: on alprazolam prn arthritis: on tylenol prn - uses salon patches prn <hr> Recommendations for patient Dear ____, It is our team's pleasure to help care for you at [facility]. I really enjoyed meeting with you today. [...] right away, [facility] at [phone], and a [facility] provider will be able to assist you. Warmly, Dr. Samantha Goldstein <hr> [facility] 2023-10-28 10:15:00 Patient's language for this interaction: Malian Historical Data Self Management/Adverse Findings/Barriers: Yes Upcoming provider appointments: Yes Geriatrics Team - Consult Note Compiled from Geriatric Tech, Biomedical Scientist, and Planting Machine Operator Visits <hr> Prior Planting Machine Operator Assessment Summary for Care Team ### Recommendations for PCP Dear Dr. Pittman, I had the pleasure of speaking with your patient, Ms. Danna Gu, as part of our Community Geriatrics program. Our team includes an EMT seeing her in her home, a geriatric nurse showcase maker, and quarterly consultation visits by me. 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 Methodist or spirituality Yes, she is a firm [...] from PT Denies problems <hr> ### Additional Planting Machine Operator Notes - Assessment by 5Ms Matters Most - Team Assessment and Plan PPC: Advance Care Planning: Multicomplexity - Team Assessment and Plan Patient's life: Caregiving: Social Determinants: ROS: Mobility - Team Assessment and Plan Home assessment: Lives in one-story [address] sq [address] home. Physical exam: Vitals: Functional Status: Mind - Team Assessment and Plan Mentation: [employer] 5 Depression History: hx depression, now back on sertraline (recently restarted after an MD/IHT joint home visit); PHQ2 04/05, PHQ9 08/24 Sleep assessment: Substance use: Medications - Team Assessment and Plan (including opportunities for deprescribing) How does the patient take and organize medications: self administers, organizes in pillbox q weekly Medication concerns: Planting Machine Operator Notes Planting Machine Operator notes about COPD 05/22/23: on breztri , albuterol inhaler prn Planting Machine Operator notes about HTN 05/26/23: losartan 100mg, stable per daughter and cardiology Planting Machine Operator notes about Pain 05/24: apap 500mg 1-2 tabs prn Planting Machine Operator notes about BH 05/26/22: sertraline 100mg / 50mg; d/c'ed alprazolam 05/26/23 to reduce fall risk Planting Machine Operator notes about Falls 05/24: potential factors include vision, hearing, meds, BP; d/c'ed xanax Additional Planting Machine Operator problems-based notes COPD: on breztri , albuterol inhaler prn Hypothyroidism: on levothyroxine HTN: on amlodipine GERD: on pantoprazole prn MDD: on sertraline again anxiety: on alprazolam prn arthritis: on tylenol prn - uses salon patches prn <hr> Recommendations for patient Dear ____, It is our team's pleasure to help care for you at [facility]. I really enjoyed meeting with you today. [...] right away, you can call our Care [facility] line 21/10 at [phone], and a [facility] provider will be able to assist you. Warmly, Dr. Samantha Goldstein <hr> Jumana Schwab [facility]
[2025-01-04] MEDS ORDERED: MORPHINE 4 MG/ML SYR ONE ×2 (16:25→19:17)
[2025-01-04] MEDS ORDERED: ONDANSETRON 4 MG/2 ML VIAL ONE ×2 (16:25→19:17)
--- NOTE | 2025-01-04 16:53 | RAD REPORT ---
EXAM: Chest Single View HISTORY: 89 years Female pre op COMPARISON: 09/10/2018 FINDINGS: LUNGS/PLEURA: Mild increased nonspecific interstitial thickening. No focal consolidation. No pneumoth orax. No pleural effusions. CARDIAC/MEDIASTINUM: Mild cardiomegaly UPPER ABDOMEN: No significant abnormality. BONES: No acute abnormality. LINES/TUBES/OTHER: N/A IMPRESSION: Nonspecific interstitial thickening could reflect either chronic changes or a nonspecific bronchitis. No consolidative airspace disease, edema, pneumothorax, or pleural effusions.
--- NOTE | 2025-01-04 16:55 | RAD REPORT ---
EXAMINATION: Hip Right 2 View VIEWS: Two views CLINICAL INDICATION: Female, 89 years old. trauma;Pain RIGHT COMPARISON: No prior exams IMPRESSION: Displaced right proximal femur fracture which is favored subtrochanteric. No definite extension to th e greater trochanter. There is foreshortening and medial displacement of the distal fragment. No dislocation.
--- NOTE | 2025-01-04 16:56 | RAD REPORT ---
EXAMINATION: Pelvis CLINICAL INDICATION: Female, 89 years old. TRAUMA COMPARISON: No prior exam. FINDINGS: Right proximal femur fracture which is favored subtrochanteric. No pelvic fracture identified. Modera te bilateral acetabular degenerative changes. IMPRESSION: No pelvic fracture identified. Right hip fracture which is favored subtrochanteric.
--- NOTE | 2025-01-04 17:10 | ER ---
Nurse's Notes [facility] Name: Danna Phillips Age: 89 yrs Sex: Female : 1935 Arrival Date: 01/04/2025 Time: 16:00 Bed 6 Private MD: Diagnosis: Right subtrochanteric hip fracture, mechanical fall Presentation: 01/04 16:08 Chief complaint: EMS states: FALL AT GAME ROOM, R HIP DEFORMITY. Coronavirus screen: At bp this time, the client does not indicate any symptoms associated with coronavirus-19. Ebola Screen: No symptoms or risks identified at this time. Initial Sepsis Screen: Does the patient meet any 2 criteria? No. Patient's initial sepsis screen is negative. Does the patient have a suspected source of infection? No. Patient's initial sepsis screen is negative. Risk Assessment: Do you want to hurt yourself or someone else? Patient reports no desire to harm self or others. Onset of symptoms was January 04, 2025 at 15:30. Care prior to arrival: IV initiated. 20 GA, in the right forearm. 16:08 Method Of Arrival: EMS: [facility] bp 16:08 Acuity: ADRIANA 3 bp Triage Assessment: 16:12 General: Appears in no apparent distress. uncomfortable, Behavior is cooperative, bp appropriate for age, anxious. Pain: Complains of pain in right hip. EENT: No deficits noted. Neuro: No deficits noted. Cardiovascular: No deficits noted. Respiratory: No deficits noted. GI: No signs and/or symptoms were reported involving the gastrointestinal system. : No signs and/or symptoms were reported regarding the genitourinary system. Derm: No deficits noted. Musculoskeletal: Bony deformity noted of right hip. Historical: - Allergies: 16:12 Codeine; bp 16:12 Sulfa (Sulfonamide Antibiotics); bp - PMHx: 16:12 60% kidney function; COPD; Gout; Hypertension; neuropathy; Thyroid problem; bp - Immunization history:: Adult Immunizations up to date. - Infectious Disease History:: Denies. - Social history:: Smoking status: unknown. Screenin:26 [facility] ED Fall Risk Assessment (Adult) History of falling in the last 3 months, kd3 including since admission Yes- single mechanical fall (1 pt) Confusion or Disorientation No (0 pts) Intoxicated or Sedated No (0 pts) Impaired Gait Yes (1 pt) Mobility Assist Device Used No (0 pt) Altered Elimination No (0 pt) Score/Fall Risk Level 0 - 2 = Low Risk Maintained a safe environment. Abuse screen: Denies threats or abuse. Denies injuries from another. Nutritional screening: No deficits noted. Tuberculosis screening: No symptoms or risk factors identified. Assessment: 17:03 Reassessment: Initiated transfer to [facility], spoke with Armida Aldrich. Awaiting phone call ss back. 18:19 Reassessment: Administrative approval given by Armida Vega RN. Accepting physician ss Dr. Laura bryant \[id number]. 20:16 General:. kd3 20:28 General: REPORT CALLED TO EDILBERTO MCGHEE . kd3 20:29 Pain: Complains of pain in right hip. Neuro: Level of Consciousness is awake, alert, kd3 obeys commands, Oriented to person, place, time, situation. Cardiovascular: Pulses are palpable in right dorsalis pedis artery and left dorsalis pedis artery. Vital Signs: 16:08 BP 189 / 98; Pulse 68; Resp 16; Temp 98; Pulse Ox 92% on 2 lpm NC; bp 16:58 Weight 65.77 kg; Height 5 ft. 8 in. ; ss 18:13 BP 169 / 56; ss 20:27 BP 121 / 53; Pulse 72; Resp 20; Pulse Ox 92% on 10 lpm NC; kd3 16:58 Body Mass Index 22.05 (65.77 kg, 172.72 cm) ED Course: 16:07 Patient arrived in ED. sp3 16:07 Dolores Muhammad MD is Attending Physician. sp3 16:08 Mikel Noonan, EDILBERTO is Primary Nurse. bp 16:11 Triage completed. bp 16:12 Arm band placed on. bp 16:49 XRAY Chest (1 view) In Process Unspecified. EDMS 16:49 Hip Right 2 View XRAY In Process Unspecified. EDMS 16:49 Pelvis XRAY In Process Unspecified. EDMS 19:16 Attending Physician role handed off by Dolores Muhammad MD sp4 19:16 Berlin Sherman MD is Attending Physician. sp4 20:26 No provider procedures requiring assistance completed. Patient transferred, IV remains kd3 in place. 20:27 Patient has correct armband on for positive identification. Provided Education on: PAIN kd3 MEDICATIONS AND EFFECTS ON OXYGEN . Administered Medications: 16:34 Drug: morphine IVP or IV 4 mg IVP once over 4 mins Route: IVP; Infused Over: 4 mins; ss Site: right wrist; 16:34 Drug: Ondansetron IVP 4 mg IVP once; over 2 minutes Route: IVP; Site: right wrist; ss 19:23 Drug: morphine IVP or IV 4 mg IVP once over 4 mins Route: IVP; Infused Over: 4 mins; vc1 Site: right wrist; 19:23 Drug: Ondansetron IVP 4 mg IVP once; over 2 minutes Route: IVP; Site: right wrist; vc1 Medication: 20:27 VIS not applicable for this client. kd3 Outcome: 17:09 ER care complete, transfer ordered by . sp3 20:27 Transferred by ground EMS to [facility], [facility], kd3 20:27 Condition: stable 20:27 Discharge instructions given to patient, family, Instructed on the need for transfer, 20:29 Patient left the ED. kd3 Signatures: Dispatcher [employer] EDMS Mehreen Aguilar RN RN ss Mikel Noonan RN RN bp Dolores Muhammad MD MD sp3 Payton Dietrich RN RN kd3 Brigitte Cameron RN RN vc1 Berlin Sherman MD MD sp4
--- NOTE | 2025-01-04 17:10 | EDPHYS ---
Physician Documentation [facility] Name: Danna Phillips Age: 89 yrs Sex: Female : 1935 Arrival Date: 01/04/2025 Time: 16:00 Bed 6 Private MD: ED Physician Berlin Sherman HPI: 01/04 16:56 This 89 yrs old Female presents to ER via EMS with complaints of fall right hip pain. sp3 17:05 89-year-old female with history of COPD, hypertension presents with mechanical fall sp3 slipping on tile floor and landing on her right hip. No other injury noted. Patient did not hit her head and has no other complaints. Review of systems negative for headache, fever, neck pain, cough, congestion, sinus pressure, ear pain, neck pain, lymph node swelling, chest pain, shortness of breath, upper back pain, mid back pain, lower back pain, flank pain, abdominal pain, nausea, vomiting, diarrhea, rash, syncope, near syncope, known sick contacts, travel history, or any other signs or symptoms on ROS at this time.. Historical: - Allergies: 16:12 Codeine; bp 16:12 Sulfa (Sulfonamide Antibiotics); bp - PMHx: 16:12 60% kidney function; COPD; Gout; Hypertension; neuropathy; Thyroid problem; bp - Immunization history:: Adult Immunizations up to date. - Infectious Disease History:: Denies. - Social history:: Smoking status: unknown. ROS: 17:06 Constitutional: Negative for fever, chills, and weight loss, Eyes: Negative for injury, sp3 pain, redness, and discharge, ENT: Negative for injury, pain, and discharge, Neck: Negative for injury, pain, and swelling, Cardiovascular: Negative for chest pain, palpitations, and edema, Respiratory: Negative for shortness of breath, cough, wheezing, and pleuritic chest pain, Abdomen/GI: Negative for abdominal pain, nausea, vomiting, diarrhea, and constipation, Back: Negative for injury and pain, Skin: Negative for injury, rash, and discoloration, Neuro: Negative for headache, weakness, numbness, tingling, and seizure, Psych: Negative for depression, anxiety, suicide ideation, homicidal ideation, and hallucinations, Allergy/Immunology: Negative for hives, rash, and allergies, Endocrine: Negative for neck swelling, polydipsia, polyuria, polyphagia, and marked weight changes, 17:06 All other systems are negative, Exam: 17:06 Constitutional: This is a well developed, well nourished patient who is awake, alert, sp3 and in no acute distress. Head/Face: Normocephalic, atraumatic. ENT: Nares patent. No nasal discharge, no septal abnormalities noted. External auditory canals are clear. Oropharynx with no redness, swelling, or masses, exudates, or evidence of obstruction, uvula midline. Mucous membranes moist. Neck: Trachea midline, no thyromegaly or masses palpated, and no cervical lymphadenopathy. Supple, full range of motion without nuchal rigidity, or vertebral point tenderness. No Meningismus. Chest/axilla: Normal chest wall appearance and motion. Nontender with no deformity. No lesions are appreciated. Cardiovascular: Regular rate and rhythm with a normal S1 and S2. No gallops, murmurs, or rubs. Normal PMI, no JVD. No pulse deficits. Respiratory: Lungs have equal breath sounds bilaterally, clear to auscultation and percussion. No rales, rhonchi or wheezes noted. No increased work of breathing, no retractions or nasal flaring. Abdomen/GI: Soft, non-tender, with normal bowel sounds. No distension or tympany. No guarding or rebound. No evidence of tenderness throughout. Back: No spinal tenderness. No costovertebral tenderness. Full range of motion. Skin: Warm, dry with normal turgor. Normal color with no rashes, no lesions, and no evidence of cellulitis. Neuro: Awake and alert, GCS 15, oriented to person, place, time, and situation. Cranial nerves II-XII grossly intact. Motor strength 5/5 in all extremities. Sensory grossly intact. Cerebellar exam normal. Normal gait. Psych: Awake, alert, with orientation to person, place and time. Behavior, mood, and affect are within normal limits. 17:06 Musculoskeletal/extremity: Right hip externally rotated and shortened consistent with probable fracture. Distal neurovascular exam is normal. No other signs of injury noted.. Vital Signs: 16:08 BP 189 / 98; Pulse 68; Resp 16; Temp 98; Pulse Ox 92% on 2 lpm NC; bp 16:58 Weight 65.77 kg; Height 5 ft. 8 in. ; ss 18:13 BP 169 / 56; ss 20:27 BP 121 / 53; Pulse 72; Resp 20; Pulse Ox 92% on 10 lpm NC; kd3 16:58 Body Mass Index 22.05 (65.77 kg, 172.72 cm) ss MDM: 16:07 Medical Screening Exam initiated sp3 17:07 Data reviewed: vital signs, nurses notes, EMS record, lab test result(s), EKG, sp3 radiologic studies. ED course: 89-year-old female with right hip injury secondary to mechanical fall. Differential diagnosis includes right hip fracture, right pelvis fracture, right hip contusion, other traumatic injury. Patient was in a pelvic binder by EMS. X-ray demonstrates right subtrochanteric fracture. Pelvis x-ray is negative. Chest x-ray demonstrates no significant abnormality. Labs pending. We have no orthopedic coverage at this facility therefore we will contact [facility] transfer center for transfer to either [place] or [facility]. Morphine and ondansetron as needed.. 18:13 ED course: Discussed with Dr. Heart hospitalist and Dr. Sunshine orthopedist at [address] have graciously accepted this patient.. 01/04 16:08 Order name: Basic Metabolic Panel; Complete Time: 18:00 sp3 01/04 16:08 Order name: CBC with Diff; Complete Time: 18:40 sp3 01/04 16:08 Order name: LFT's; Complete Time: 18:00 3 01/04 16:08 Order name: Magnesium; Complete Time: 18:00 sp3 01/04 16:08 Order name: NT PRO-BNP; Complete Time: 18:00 sp3 01/04 16:08 Order name: PT-INR; Complete Time: 18:00 sp3 01/04 16:08 Order name: Troponin HS; Complete Time: 18:00 sp3 01/04 16:08 Order name: Ptt, Activated; Complete Time: 18:00 sp3 01/04 16:08 Order name: Type And Screen; Complete Time: 18:40 sp3 01/04 18:35 Order name: CBC Smear Scan; Complete Time: 18:40 EDMS 01/04 16:08 Order name: XRAY Chest (1 view); Complete Time: 17:03 sp3 01/04 16:08 Order name: Hip Right 2 View XRAY; Complete Time: 17:03 sp3 01/04 16:08 Order name: Pelvis XRAY; Complete Time: 17:03 sp3 01/04 16:08 Order name: Cardiac monitoring; Complete Time: 16:47 sp3 01/04 16:08 Order name: IV Saline Lock; Complete Time: 16:47 sp3 01/04 16:08 Order name: Labs collected and sent; Complete Time: 16:47 sp3 01/04 16:08 Order name: O2 Per Protocol; Complete Time: 16:47 sp3 01/04 16:08 Order name: O2 Sat Monitoring; Complete Time: 16:47 sp3 01/04 16:08 Order name: NPO; Complete Time: 16:47 sp3 Administered Medications: 16:34 Drug: morphine IVP or IV 4 mg IVP once over 4 mins Route: IVP; Infused Over: 4 mins; ss Site: right wrist; 16:34 Drug: Ondansetron IVP 4 mg IVP once; over 2 minutes Route: IVP; Site: right wrist; ss 19:23 Drug: morphine IVP or IV 4 mg IVP once over 4 mins Route: IVP; Infused Over: 4 mins; vc1 Site: right wrist; 19:23 Drug: Ondansetron IVP 4 mg IVP once; over 2 minutes Route: IVP; Site: right wrist; vc1 Disposition Summary: 01/04/25 17:09 Transfer Ordered Notes: Transfer Location: Other [facility] sp3 Reason: Higher level of care sp3 Condition: Stable sp3 Problem: new sp3 Symptoms: have worsened sp3 Accepting Physician: ANH hospitalist and orthopedic senior analytic consultant(01/04/25 20:29) kd3 Diagnosis - Right subtrochanteric hip fracture, mechanical fall sp3 Forms: - Medication Reconciliation Form sp3 - SBAR form sp3 Signatures: Dispatcher [employer] EDMehreen Taylor RN RN ss Peltier, Brian, RN RN bp Patel, Setul, MD MD sp3 Payton Dietrich RN RN kd3 Brigitte Cameron RN RN vc1 Berlin Sherman MD MD sp4 Corrections: (The following items were deleted from the chart) 16: 16:09 Hip Right 2 View+RAD.RAD.BRZ ordered. EDMS EDMS 16: 16:09 Pelvis+RAD.RAD.BRZ ordered. EDMS EDMS 20:29 17:09 TBD hospitalist and orthopedic senior analytic consultant sp3 kd3
[2025-01-04 17:11] LABS: Absolute Lymphocytes (CBC) 1.7 K/uL (0.7-4.9); Hematocrit 31.0 % (36.0-45.0); Hemoglobin 9.7 g/dL (12.0-15.0); MCH 19.4 pg (27.0-35.0); MCHC 31.2 g/dL (32.0-36.0); MCV 62.3 fL (80-100); MPV 8.7 fL (7.6-11.3); Nucleated RBC Absolute Count 0.0 (0-0); Nucleated Red Blood Cells % 0.1 % (0-0); RBC Red Blood Cell Count 4.97 M/uL (3.86-4.86); White Blood Count 9.00 thou/uL (4.3-10.9)
[2025-01-04 17:21] LABS: PT Prothrombin Time 11.1 SECONDS (10-13.0); PTT, Activated Partial Thromb 18.4 SECONDS (27.2-37.4); Protime INR 0.98
[2025-01-04 17:32] LABS: ALT/SGPT 17 U/L (13-56); AST/SGOT 11 U/L (15-37); Albumin 3.2 g/dL (3.4-5.0); Albumin/Globulin Ratio 1.0 (1.1-1.8); Alkaline Phosphatase 59 U/L (45-117); Anion Gap 9.7 mEq/L (5.0-15.0); BUN Blood Urea Nitrogen 18 mg/dL (7-18); Globulin 3.2 g/dL (2.3-3.5); Glucose Level 107 mg/dL (74-106); Magnesium 2.3 mg/dL (1.6-2.4); NT PRO-BNP 1747 pg/mL (<450); Potassium 3.7 mEq/L (3.5-5.1); Troponin High Sensitivity 9.2 pg/mL (<58.9)
[2025-01-04 17:40] LABS: Bilirubin Indirect, Calculated 0.3 mg/dL (0.2-0.8)
[2025-01-04 18:35] LABS: Anisocytosis 1+; Blood Morphology Comment NOTED (NOT SEEN); Poikilocytosis 2+; White Blood Cell Scan OK (OK)
[2025-01-04 21:00] VITALS: TEMP 98; O2SAT 92
[2025-01-04 21:03] VITALS: BP 121/53
== END 2025-01-04 20:29 | disposition short-term general hospital (02) ==
LOC: ER 16:00
DX: S72.21XA Displaced subtrochanteric fracture of right femur, initial encounter for closed fracture (principal); W01.0XXA Fall on same level from slipping, tripping and stumbling without subsequent striking against object, initial encounter
CPT/HCPCS: 85025; 80048; 36415; 86900; 83735; 86850; 85610; 86901; 80076; 85730; 84484; 83880; 71045; 72170; 73502; 96375; 96374; 99285; J2405 ×2